=== PATIENT | male | born 1985 | race Caucasian/White ===

== ENCOUNTER 2022-06-29 20:35 | Emergency (ER) | payer MEDICAID, SELFPAY ==
--- NOTE | ~2022-06-29 | CT_ITS ---
EXAMINATION: CT ABDOMEN AND PELVIS WITHOUT CONTRAST CLINICAL INFORMATION: Generalized abdominal pain COMPARISON: CT 12/15/2016 TECHNIQUE: Multidetector volumetric imaging was performed from the superior aspect of the liver through the pubic symphysis. Sagittal and coronal reformatted images were obtained on the technologist's workstation. This CT examination was performed using dose optimization techniques as appropriate, variously including the following: *Automated exposure control *Adjustment of mA and/or kV according to patient size (this includes techniques or standardized protocols for targeted exams where dose is matched to indication/reason for exam; i.e. extremities or head) *Use of iterative reconstruction technique DLP: 909 mGy-cm FINDINGS: LUNG BASES: The visualized lung bases are unremarkable. LIVER, GALLBLADDER, AND BILIARY TREE: Diffuse fatty infiltration of the liver with geographic areas of fatty sparing around the gallbladder fossa. The gallbladder is unremarkable with no evidence of radiopaque gallstones, gallbladder wall thickening, or obvious pericholecystic inflammatory changes. PANCREAS: Unremarkable. SPLEEN: Unremarkable. ADRENAL GLANDS: Unremarkable. KIDNEYS AND URETERS: The kidneys are normal in size, shape, and attenuation. No hydronephrosis, hydroureter, or calculi seen. No perinephric stranding. BLADDER: Unremarkable. GASTROINTESTINAL TRACT: The small and large bowel are unremarkable. The appendix is unremarkable. ABDOMINAL WALL: Fat-containing left inguinal hernia. LYMPH NODES: Normal. VASCULAR: Unremarkable. PELVIC VISCERA: Unremarkable. OSSEOUS STRUCTURES: Unremarkable. CT/CT abdomen pelvis wo IV con IMPRESSION: 1. No focal inflammatory process or obstruction. 2. Diffuse fatty infiltration of the liver. 3. Fat-containing left inguinal hernia. Fleischner guidelines were followed.
[2022-06-29 20:40] VITALS: BP 142/91; PULSE 66; RESP 18; TEMP 36.6; O2SAT 97; BMI 40.7
--- NOTE | 2022-06-29 20:42 | ECG_ITS ---
Test Reason : ABD PAIN Blood Pressure : / mmHG Vent. Rate : 056 BPM Atrial Rate : 056 BPM P-R Int : 216 ms QRS Dur : 108 ms QT Int : 408 ms P-R-T Axes : 011 -25 -10 degrees QTc Int : 393 ms Sinus bradycardia with 1st degree A-V block Low voltage QRS Nonspecific ST and T wave abnormality Borderline ECG When compared with ECG of 07-MAY-2017 04:39, Nonspecific ST and T wave abnormality more prominent Referred By: Sumit King Electronically Signed By:BEBETO BEAR
--- NOTE | 2022-06-29 20:44 | ED_ITS ---
HPI - General Adult General Chief complaint: Abdominal Pain <LANE Caban - Last Filed: 06/30/22 13:27> Stated complaint: abd pain <LANE Caban - Last Filed: 06/30/22 13:27> Time Seen by Provider: 06/29/22 22:34 <[address] Caban - Last Filed: 06/30/22 13:27> Source: patient <LANE Chaudhary - Last Filed: 06/29/22 23:54> Mode of arrival: ambulatory <LANE Chaudhary - Last Filed: 06/29/22 23:54> Limitations: no limitations <LANE Chaudhary Last Filed: 06/29/22 23:54> History of Present Illness HPI narrative: This is a 36-year-old male history of gastritis, inguinal hernia, CHF, diabetes presenting to the emergency department with complaints of diffuse abdominal pain, nausea, vomiting, small amount of blood in vomit x a few days. Patient tells me that his abdominal pain is diffuse in nature, described as intermittently crampy and sometimes sharp throughout. Also reports associated nausea and vomiting and has been eating and drinking less than usual. Patient denies diarrhea however states he has been constipated for the past few days, he has been taking [id number] stool softeners with little to no relief. He does report that he had a small amount of what he thinks was blood in his vomit once however unclear. Denies fevers, chills, changes in urination, chest pain, shortness of breath, headache, vision changes, dizziness and weakness, hematochezia, melena. Denies recent sick contacts., <LANE Chaudhary - Last Filed: 06/29/22 23:54> Related Data Home medications: Previous Rx's Medication Instructions Recorded docusate sodium 100 mg capsule 100 mg PO BID #20 caps 06/29/22 (Colace) ketorolac 10 mg tablet 10 mg PO TID PRN pain 5 days #15 06/29/22 tabs ondansetron 4 mg disintegrating 4 mg PO Q6H PRN nausea and 06/29/22 tablet vomiting #14 tabs polyethylene glycol 3350 17 17 g PO BID #238 grams 06/29/22 gram/dose oral powder (Miralax) sennosides 8.6 mg tablet (senna) 8.6 mg PO BEDTIME #14 tabs 06/29/[address] <[address] Caban - Last Filed: 06/30/22 13:27> Allergies/adverse reactions: Allergies Allergy/AdvReac Type Severity Reaction Status Date / Time amoxicillin Allergy Hives Verified 06/29/22 20:40 <[address] Caban - Last Filed: 06/30/22 13:27> Review of Systems 2 Review of Systems: Constitutional : No Weight loss, No Fever, No Chills, No Fatigue, No Malaise ENT/Mouth : No sore throat, No Rhinorrhea Eyes: No Eye Pain, No Swelling, No Redness Cardiovascular : No Chest Pain, No SOB, No Dyspnea on Exertion, No Orthopnea, No Edema, No Palpitations Respiratory : No Cough, No Sputum, No Wheezing Gastrointestinal : + Nausea, + Vomiting, No Diarrhea, + Constipation, + abdominal Pain, No Hematochezia, No Melena Genitourinary : No Dysuria, No Urinary Frequency, No Hematuria, Musculoskeletal : No joint pain, No Myalgias, No Joint Swelling Skin : No Skin Lesions, No rash Neuro : No Weakness, No Numbness, No Dizziness, No Headache Psych : No Anxiety/Panic, No Depression All other systems reviewed and are negative <LANE Chaudhary - Last Filed: 06/29/22 23:54> Yes all other systems are reviewed and are negative <LANE Chaudhary - Last Filed: 06/29/22 23:54> [facility] Past Medical History Attestation statement: The following information was validated with the patient. <LANE Chaudhary - Last Filed: 06/29/22 23:54> Source: old records reviewed and nursing notes reviewed <LANE Chaudhary - Last Filed: 06/29/22 23:54> Medical History: Medical History CHF (congestive heart failure) Diabetes Gastritis Inguinal hernia <LANE Caban Last Filed: 06/30/22 13:27> Social History Social History: Social History Advance Directives: No Advance Directives Information Provided: No <LANE Caban - Last Filed: 06/30/22 13:27> Physical Exam ED Vital Signs: Vital Signs - 24 hr 06/29/22 20:40 06/29/22 23:11 Temperature 97.9 F Pulse Rate 66 61 Respiratory Rate 18 18 Blood Pressure 142/91 H 116/68 Pulse Oximetry 97 98 Oxygen Delivery Method Room Air Room Air BMI result Body Mass Index 40.7 <[address] Caban - Last Filed: 06/30/22 13:27> Vital Signs - 24 hr 06/29/22 20:40 06/29/22 23:11 Temperature 97.9 F Pulse Rate 66 61 Respiratory Rate 18 18 Blood Pressure 142/91 H 116/68 Pulse Oximetry 97 98 Oxygen Delivery Method Room Air Room Air BMI result Body Mass Index 40.7 Vital signs stable <LANE Chaudhary - Last Filed: 06/29/22 23:54> Appearance: Alert.? Oriented X3.? No acute distress.? Head: Normocephalic, atraumatic, no step-offs or deformities Eyes: Pupils equal, round and reactive to light.? Neck: Normal inspection.? Neck supple.? CVS: Normal heart rate and rhythm.? Pulses normal.? Respiratory: No respiratory distress.? Breath sounds normal.? Abdomen: Soft and nontender.? Diffuse abdominal tenderness with normoactive bowel sounds throughout. Skin: Skin warm and dry.? Normal skin color.? Normal skin turgor.? Extremities: No lower extremity edema.? No calf ttp. 5/5 strength to bilateral upper and lower extremities Neuro: Oriented X 3.? No motor deficit.? No sensory deficit. CN 2-[address] Chaudhary - Last Filed: 06/29/22 23:54> Course Course Course Narrative: RME: 36 yold male with pmh CHF/DM presents to the ED for generalized abdominal pain with vomitting. Generalized abdominal tendernss on palpation. labs and imaging ordered <LANE Caban - Last Filed: 06/30/22 13:27> Reevaluation(s) Reevaluation #1: CBC with slight normocytic anemia and slight elevated white blood cell count likely reactive. Coags within normal limits. Chemistry with no acute findings requiring intervention. Troponin negative EKG nonischemic unlikely ACS., lipase within normal limits. UA without infection. CT of the abdomen pelvis with no focal inflammatory process or obstruction. Diffuse fatty infiltration of liver. Fat containing left inguinal hernia. Pending viral swabs. <LANE Chaudhary - Last Filed: 06/29/22 23:54> Time: 22:38 <[address] Chaudhary - Last Filed: 06/29/22 23:54> Reevaluation #2: Flu, COVID negative. Patient feeling much better, upon re-evaluation abdomen no longer tender to palpation. At this time will be discharged home. Tolerating PO. Educated patient on diagnosis and treatment plan, answered all question, patient verbalizes understanding. At this time patient will be discharged home, advised to return with new or worsening symptoms. Educated on worrisome signs and symptoms and when to return. At this time I feel comfortable discharge home. <LANE Chaudhary - Last Filed: 06/29/22 23:54> Time: 23:51 <[address] Chaudhary - Last Filed: 06/29/22 23:54> Medications Administered Discontinued Medications Generic Name Dose Route Start Last Admin Trade Name Freq PRN Reason Stop Dose Admin Ketorolac Tromethamine 30 mg 06/29/22 22:49 06/29/22 23:10 Ketorolac Tromethamine 15 Mg/Ml Vial IM 06/29/22 22:50 30 mg ONCE ONE Administration Ondansetron HCl 4 mg 06/29/22 22:49 06/29/22 23:10 Ondansetron Odt 4 Mg Tab.Rapdis TRANSLINGU 06/29/22 22:50 4 mg ONCE ONE Administration <LANE Caban - Last Filed: 06/30/22 13:27> Medications Administered Discontinued Medications Generic Name Dose Route Start Last Admin Trade Name Freq PRN Reason Stop Dose Admin Ketorolac Tromethamine 30 mg 06/29/22 22:49 06/29/22 23:10 Ketorolac Tromethamine 15 Mg/Ml Vial IM 06/29/22 22:50 30 mg ONCE ONE Administration Ondansetron HCl 4 mg 06/29/22 22:49 06/29/22 23:10 Ondansetron Odt 4 Mg Tab.Aman CEVALLOSINGU 06/29/22 22:50 4 mg ONCE ONE Administration <LANE Chaudhary - Last Filed: 06/29/22 23:54> Medical Decision Making Medical Decision Making [facility] Narrative: [id number] 36-year-old male presents for evaluation of abdominal pain, nausea, vomiting ( once with small amount of red tinge patient thought was blood) X 2 days Physical exam with diffuse abdominal tenderness. Likely viral illness. Unlikley UGIB, Marlene-Romo tear.. No signs of acute abdomen. No signs of ischemic bowel, appendicitis, cholecystitis, diverticulitis, pancreatitis, obstruction Plan labs, imaging, urine <LANE Chaudhary - Last Filed: 06/29/22 23:54> Differential Diagnosis Differential Diagnoses: The differential diagnosis associated with the presentation includes <LANE Chaudhary - Last Filed: 06/29/22 23:54> Likely viral illness. Unlikley UGIB, Marlene-Romo tear.. No signs of acute abdomen. No signs of ischemic bowel, appendicitis, cholecystitis, diverticulitis, pancreatitis, obstruction <LANE Chaudhary - Last Filed: 06/29/22 23:54> Admission/Observation Consideration of admission/observation: Escalation of care including admission/observation considered <LANE Chaudhary - Last Filed: 06/29/22 23:54> Unlikely <LANE Chaudhary - Last Filed: 06/29/22 23:54> Lab Data [facility] Lab Attestation statement: I reviewed the patient's lab results. <LANE Chaudhary - Last Filed: 06/29/22 23:54> Result Diagrams: 06/29/22 21:24 06/29/22 21:[address] <[address] Caban - Last Filed: 06/30/22 13:27> Labs: Lab Results 06/29/22 06/29/22 06/29/22 Range/Units 21:24 21:24 21:24 WBC 13.0 H (4.8-10.8) X10*3/uL RBC 4.38 L (4.60-5.80) X10*6/uL Hgb 12.2 L (14.0-18.0) g/dl Hct 36.9 L (42.0-52.0) % MCV 84.2 (80.0-98.0) fL MCH 27.9 (27.0-33.0) pg MCHC 33.1 (31.0-36.0) g/dl RDW 12.5 (11.0-16.0) % Plt Count 298 (160-400) X10*3/uL MPV 9.5 (9.4-12.4) fL Immature Gran % (Auto) 0.4 (0.0-0.4) % Neut % (Auto) 76.0 H (45-73) % Lymph % (Auto) 17.6 L (20-40) % Maury % (Auto) 4.6 (2-11) % Eos % (Auto) 1.2 (0-4) % Baso % (Auto) 0.2 (0-2) % Lymph # (Auto) 2.3 (1.2-4.9) X10*3/uL Maury # (Auto) 0.6 (0.1-1.2) X10*3/uL Eos # (Auto) 0.2 (0.0-0.4) X10*3/uL Baso # (Auto) 0.0 (0.0-0.2) X10*3/uL Abs Immat Gran (auto) 0.05 H (0.00-0.03) X10*3/uL Absolute Neuts (auto) 9.9 H (2.0-8.3) x10*3/uL Absolute Nucleated RBC 0.000 (0.0-0.012) X10*3/uL Nucleated RBC % (auto) 0.0 (0.0-0.2) /100WBC PT 12.5 (10.0-13.1) SEC INR 1.1 (0.9-1.1) APTT 27.7 (26.0-36.4) SEC Sodium 138 (135-145) mmol/L Potassium 3.9 (3.3-5.1) mmol/L Chloride 106 (96-108) mmol/L Carbon Dioxide 20 L (22-29) mmol/L Anion Gap 16 (12-20) BUN 14 (9-16) mg/dL Creatinine 0.81 (0.5-1.4) mg/dL Estim Creat Clear Calc 156.3 Estimated GFR > 60 Random Glucose 166 H (60-115) mg/dL Calcium 8.6 (8.4-10.2) mg/dL Total Bilirubin 0.7 (0.0-1.0) mg/dL AST 21 (5-37) U/L ALT 37 (0-40) U/L Alkaline Phosphatase 70 (39-117) U/L Troponin I High Sens (<3.5-35.0) ng/L Total Protein 6.7 (6.5-8.0) g/dL Albumin 3.9 (3.5-5.0) g/dL Lipase 16 (8-78) U/L Urine Color Urine Appearance Urine pH (5.0-9.0) Ur Specific [place] (1.005-1.025) Urine Protein (Neg-Trace) mg/dL Urine Glucose (UA) (Negative) mg/dL Urine Ketones (Negative) mg/dL Urine Blood (Negative) Urine Nitrite (Negative) Ur Leukocyte Esterase (Negative) COVID-19 (JOSELINE) (Negative) COVID-19 Clin Com Influenza Type A (ABUNDIO) (Negative) Influenza Type B (ABUNDIO) (Negative) Influenza A & B Note 06/29/22 06/29/22 06/29/22 Range/Units 21:24 21:29 23:24 WBC (4.8-10.8) X10*3/uL RBC (4.60-5.80) X10*6/uL Hgb (14.0-18.0) g/dl Hct (42.0-52.0) % MCV (80.0-98.0) fL MCH (27.0-33.0) pg MCHC (31.0-36.0) g/dl RDW (11.0-16.0) % Plt Count (160-400) X10*3/uL MPV (9.4-12.4) fL Immature Gran % (Auto) (0.0-0.4) % Neut % (Auto) (45-73) % Lymph % (Auto) (20-40) % Maury % (Auto) (2-11) % Eos % (Auto) (0-4) % Baso % (Auto) (0-2) % Lymph # (Auto) (1.2-4.9) X10*3/uL Maury # (Auto) (0.1-1.2) X10*3/uL Eos # (Auto) (0.0-0.4) X10*3/uL Baso # (Auto) (0.0-0.2) X10*3/uL Abs Immat Gran (auto) (0.00-0.03) X10*3/uL Absolute Neuts (auto) (2.0-8.3) x10*3/uL Absolute Nucleated RBC (0.0-0.012) X10*3/uL Nucleated RBC % (auto) (0.0-0.2) /100WBC PT (10.0-13.1) SEC INR (0.9-1.1) APTT (26.0-36.4) SEC Sodium (135-145) mmol/L Potassium (3.3-5.1) mmol/L Chloride (96-108) mmol/L Carbon Dioxide (22-29) mmol/L Anion Gap (12-20) BUN (9-16) mg/dL Creatinine (0.5-1.4) mg/dL Estim Creat Clear Calc Estimated GFR Random Glucose (60-115) mg/dL Calcium (8.4-10.2) mg/dL Total Bilirubin (0.0-1.0) mg/dL AST (5-37) U/L ALT (0-40) U/L Alkaline Phosphatase (39-117) U/L Troponin I High Sens < 3.5 (<3.5-35.0) ng/L Total Protein (6.5-8.0) g/dL Albumin (3.5-5.0) g/dL Lipase (8-78) U/L Urine Color Yellow Urine Appearance Clear Urine pH 5.5 (5.0-9.0) Ur Specific [place] >= 1.030 H (1.005-1.025) Urine Protein Trace (Neg-Trace) mg/dL Urine Glucose (UA) Negative (Negative) mg/dL Urine Ketones Negative (Negative) mg/dL Urine Blood Negative (Negative) Urine Nitrite Negative (Negative) Ur Leukocyte Esterase Negative (Negative) COVID-19 (JOSELINE) (Negative) COVID-19 Clin Com Influenza Type A (ABUNDIO) Negative (Negative) Influenza Type B (ABUNDIO) Negative (Negative) Influenza A & B Note See Note 06/29/22 Range/Units 23:24 WBC (4.8-10.8) X10*3/uL RBC (4.60-5.80) X10*6/uL Hgb (14.0-18.0) g/dl Hct (42.0-52.0) % MCV (80.0-98.0) fL MCH (27.0-33.0) pg MCHC (31.0-36.0) g/dl RDW (11.0-16.0) % Plt Count (160-400) X10*3/uL MPV (9.4-12.4) fL Immature Gran % (Auto) (0.0-0.4) % Neut % (Auto) (45-73) % Lymph % (Auto) (20-40) % Maury % (Auto) (2-11) % Eos % (Auto) (0-4) % Baso % (Auto) (0-2) % Lymph # (Auto) (1.2-4.9) X10*3/uL Maury # (Auto) (0.1-1.2) X10*3/uL Eos # (Auto) (0.0-0.4) X10*3/uL Baso # (Auto) (0.0-0.2) X10*3/uL Abs Immat Gran (auto) (0.00-0.03) X10*3/uL Absolute Neuts (auto) (2.0-8.3) x10*3/uL Absolute Nucleated RBC (0.0-0.012) X10*3/uL Nucleated RBC % (auto) (0.0-0.2) /100WBC PT (10.0-13.1) SEC INR (0.9-1.1) APTT (26.0-36.4) SEC Sodium (135-145) mmol/L Potassium (3.3-5.1) mmol/L Chloride (96-108) mmol/L Carbon Dioxide (22-29) mmol/L Anion Gap (12-20) BUN (9-16) mg/dL Creatinine (0.5-1.4) mg/dL Estim Creat Clear Calc Estimated GFR Random Glucose (60-115) mg/dL Calcium (8.4-10.2) mg/dL Total Bilirubin (0.0-1.0) mg/dL AST (5-37) U/L ALT (0-40) U/L Alkaline Phosphatase (39-117) U/L Troponin I High Sens (<3.5-35.0) ng/L Total Protein (6.5-8.0) g/dL Albumin (3.5-5.0) g/dL Lipase (8-78) U/L Urine Color Urine Appearance Urine pH (5.0-9.0) Ur Specific [place] (1.005-1.025) Urine Protein (Neg-Trace) mg/dL Urine Glucose (UA) (Negative) mg/dL Urine Ketones (Negative) mg/dL Urine Blood (Negative) Urine Nitrite (Negative) Ur Leukocyte Esterase (Negative) COVID-19 (JOSELINE) Negative (Negative) COVID-19 Clin Com See Note Influenza Type A (ABUNDIO) (Negative) Influenza Type B (ABUNDIO) (Negative) Influenza A & B Note <LANE Caban - Last Filed: 06/30/22 13:27> Lab Results 06/29/22 06/29/22 06/29/22 Range/Units 21:24 21:24 21:24 WBC 13.0 H (4.8-10.8) X10*3/uL RBC 4.38 L (4.60-5.80) X10*6/uL Hgb 12.2 L (14.0-18.0) g/dl Hct 36.9 L (42.0-52.0) % MCV 84.2 (80.0-98.0) fL MCH 27.9 (27.0-33.0) pg MCHC 33.1 (31.0-36.0) g/dl RDW 12.5 (11.0-16.0) % Plt Count 298 (160-400) X10*3/uL MPV 9.5 (9.4-12.4) fL Immature Gran % (Auto) 0.4 (0.0-0.4) % Neut % (Auto) 76.0 H (45-73) % Lymph % (Auto) 17.6 L (20-40) % Maury % (Auto) 4.6 (2-11) % Eos % (Auto) 1.2 (0-4) % Baso % (Auto) 0.2 (0-2) % Lymph # (Auto) 2.3 (1.2-4.9) X10*3/uL Maury # (Auto) 0.6 (0.1-1.2) X10*3/uL Eos # (Auto) 0.2 (0.0-0.4) X10*3/uL Baso # (Auto) 0.0 (0.0-0.2) X10*3/uL Abs Immat Gran (auto) 0.05 H (0.00-0.03) X10*3/uL Absolute Neuts (auto) 9.9 H (2.0-8.3) x10*3/uL Absolute Nucleated RBC 0.000 (0.0-0.012) X10*3/uL Nucleated RBC % (auto) 0.0 (0.0-0.2) /100WBC PT 12.5 (10.0-13.1) SEC INR 1.1 (0.9-1.1) APTT 27.7 (26.0-36.4) SEC Sodium 138 (135-145) mmol/L Potassium 3.9 (3.3-5.1) mmol/L Chloride 106 (96-108) mmol/L Carbon Dioxide 20 L (22-29) mmol/L Anion Gap 16 (12-20) BUN 14 (9-16) mg/dL Creatinine 0.81 (0.5-1.4) mg/dL Estim Creat Clear Calc 156.3 Estimated GFR > 60 Random Glucose 166 H (60-115) mg/dL Calcium 8.6 (8.4-10.2) mg/dL Total Bilirubin 0.7 (0.0-1.0) mg/dL AST 21 (5-37) U/L ALT 37 (0-40) U/L Alkaline Phosphatase 70 (39-117) U/L Troponin I High Sens (<3.5-35.0) ng/L Total Protein 6.7 (6.5-8.0) g/dL Albumin 3.9 (3.5-5.0) g/dL Lipase 16 (8-78) U/L Urine Color Urine Appearance Urine pH (5.0-9.0) Ur Specific [place] (1.005-1.025) Urine Protein (Neg-Trace) mg/dL Urine Glucose (UA) (Negative) mg/dL Urine Ketones (Negative) mg/dL Urine Blood (Negative) Urine Nitrite (Negative) Ur Leukocyte Esterase (Negative) COVID-19 (JOSELINE) (Negative) COVID-19 Clin Com Influenza Type A (ABUNDIO) (Negative) Influenza Type B (ABUNDIO) (Negative) Influenza A & B Note 06/29/22 06/29/22 06/29/22 Range/Units 21:24 21:29 23:24 WBC (4.8-10.8) X10*3/uL RBC (4.60-5.80) X10*6/uL Hgb (14.0-18.0) g/dl Hct (42.0-52.0) % MCV (80.0-98.0) fL MCH (27.0-33.0) pg MCHC (31.0-36.0) g/dl RDW (11.0-16.0) % Plt Count (160-400) X10*3/uL MPV (9.4-12.4) fL Immature Gran % (Auto) (0.0-0.4) % Neut % (Auto) (45-73) % Lymph % (Auto) (20-40) % Maury % (Auto) (2-11) % Eos % (Auto) (0-4) % Baso % (Auto) (0-2) % Lymph # (Auto) (1.2-4.9) X10*3/uL Maury # (Auto) (0.1-1.2) X10*3/uL Eos # (Auto) (0.0-0.4) X10*3/uL Baso # (Auto) (0.0-0.2) X10*3/uL Abs Immat Gran (auto) (0.00-0.03) X10*3/uL Absolute Neuts (auto) (2.0-8.3) x10*3/uL Absolute Nucleated RBC (0.0-0.012) X10*3/uL Nucleated RBC % (auto) (0.0-0.2) /100WBC PT (10.0-13.1) SEC INR (0.9-1.1) APTT (26.0-36.4) SEC Sodium (135-145) mmol/L Potassium (3.3-5.1) mmol/L Chloride (96-108) mmol/L Carbon Dioxide (22-29) mmol/L Anion Gap (12-20) BUN (9-16) mg/dL Creatinine (0.5-1.4) mg/dL Estim Creat Clear Calc Estimated GFR Random Glucose (60-115) mg/dL Calcium (8.4-10.2) mg/dL Total Bilirubin (0.0-1.0) mg/dL AST (5-37) U/L ALT (0-40) U/L Alkaline Phosphatase (39-117) U/L Troponin I High Sens < 3.5 (<3.5-35.0) ng/L Total Protein (6.5-8.0) g/dL Albumin (3.5-5.0) g/dL Lipase (8-78) U/L Urine Color Yellow Urine Appearance Clear Urine pH 5.5 (5.0-9.0) Ur Specific [place] >= 1.030 H (1.005-1.025) Urine Protein Trace (Neg-Trace) mg/dL Urine Glucose (UA) Negative (Negative) mg/dL Urine Ketones Negative (Negative) mg/dL Urine Blood Negative (Negative) Urine Nitrite Negative (Negative) Ur Leukocyte Esterase Negative (Negative) COVID-19 (JOSELINE) (Negative) COVID-19 Clin Com Influenza Type A (ABUNDIO) Negative (Negative) Influenza Type B (ABUNDIO) Negative (Negative) Influenza A & B Note See Note 06/29/22 Range/Units 23:24 WBC (4.8-10.8) X10*3/uL RBC (4.60-5.80) X10*6/uL Hgb (14.0-18.0) g/dl Hct (42.0-52.0) % MCV (80.0-98.0) fL MCH (27.0-33.0) pg MCHC (31.0-36.0) g/dl RDW (11.0-16.0) % Plt Count (160-400) X10*3/uL MPV (9.4-12.4) fL Immature Gran % (Auto) (0.0-0.4) % Neut % (Auto) (45-73) % Lymph % (Auto) (20-40) % Maury % (Auto) (2-11) % Eos % (Auto) (0-4) % Baso % (Auto) (0-2) % Lymph # (Auto) (1.2-4.9) X10*3/uL Maury # (Auto) (0.1-1.2) X10*3/uL Eos # (Auto) (0.0-0.4) X10*3/uL Baso # (Auto) (0.0-0.2) X10*3/uL Abs Immat Gran (auto) (0.00-0.03) X10*3/uL Absolute Neuts (auto) (2.0-8.3) x10*3/uL Absolute Nucleated RBC (0.0-0.012) X10*3/uL Nucleated RBC % (auto) (0.0-0.2) /100WBC PT (10.0-13.1) SEC INR (0.9-1.1) APTT (26.0-36.4) SEC Sodium (135-145) mmol/L Potassium (3.3-5.1) mmol/L Chloride (96-108) mmol/L Carbon Dioxide (22-29) mmol/L Anion Gap (12-20) BUN (9-16) mg/dL Creatinine (0.5-1.4) mg/dL Estim Creat Clear Calc Estimated GFR Random Glucose (60-115) mg/dL Calcium (8.4-10.2) mg/dL Total Bilirubin (0.0-1.0) mg/dL AST (5-37) U/L ALT (0-40) U/L Alkaline Phosphatase (39-117) U/L Troponin I High Sens (<3.5-35.0) ng/L Total Protein (6.5-8.0) g/dL Albumin (3.5-5.0) g/dL Lipase (8-78) U/L Urine Color Urine Appearance Urine pH (5.0-9.0) Ur Specific [place] (1.005-1.025) Urine Protein (Neg-Trace) mg/dL Urine Glucose (UA) (Negative) mg/dL Urine Ketones (Negative) mg/dL Urine Blood (Negative) Urine Nitrite (Negative) Ur Leukocyte Esterase (Negative) COVID-19 (JOSELINE) Negative (Negative) COVID-19 Clin Com See Note Influenza Type A (ABUNDIO) (Negative) Influenza Type B (ABUNDIO) (Negative) Influenza A & B Note <LANE Chaudhary - Last Filed: 06/29/22 23:54> Independent Interpretation I performed an independent interpretation of an: CT Scan (CT/CT abdomen pelvis wo IV con IMPRESSION: 1. No focal inflammatory process or obstruction. 2. Diffuse fatty infiltration of the live r. 3. Fat-containing left inguinal hernia.) <LANE Chaudhary - Last Filed: 06/29/22 23:54> Radiology Impression Discussion of test interpretation with radiology: I have reviewed the radiologist's reading. <LANE Chaudhary - Last Filed: 06/29/22 23:54> Core Measures AMI core measures followed: Yes <LANE Chaudhary - Last Filed: 06/29/22 23:54> Measure exclusions: not indicated <LANE Chaudhary - Last Filed: 06/29/22 23:54> Critical Care Time Critical Care Time Critical Care Time: No <LANE Chaudhary - Last Filed: 06/29/22 23:54> Discharge Plan Discharge Clinical Impression: Nausea & vomiting, Abdominal pain, Vomiting <LANE Caban - Last Filed: 06/30/22 13:27> Patient Disposition: Home, Self-Care <LANE Caban Last Filed: 06/30/22 13:27> Instructions: Acute Nausea and Vomiting (ED), Abdominal Pain (ED) <LANE Caban Last Filed: 06/30/22 13:27> Additional Instructions: Take your medications as prescribed. If you were prescribed antibiotics today, it is important that you take your medication to their entirety, do not skip any doses, do not finish them early. Follow-up with your primary care provider this week. Return to the emergency department with new or worsening symptoms. Such as fevers, chills, chest pain, shortness of breath, nausea, vomiting, dizziness, headache, vision changes, lethargy In case of emergency call 911 Zofran was sent for nausea and vomiting, please take this as prescribed, do not take more than daily prescribed doses this can lead to cardiac dysrhythmias. Colace, senna and MiraLax sent for constipation. Toradol has been sent to your pharmacy, you tolerated this well in the department. Please take this as prescribed do not take this with ibuprofen, or other NSAIDs, do not mix this with alcohol. Side effects of this medication including increased risk for bleeding and possible kidney injury. CT/CT abdomen pelvis wo IV con IMPRESSION: 1.? No focal inflammatory process or obstruction. 2.? Diffuse fatty infiltration of the liver. 3.? Fat-containing left inguinal hernia. ? Fleischner guidelines were followed. <LANE Caban - Last Filed: 06/30/22 13:27> Prescriptions: New sennosides [senna] 8.6 mg tablet 8.6 mg PO BEDTIME Qty: 14 0RF docusate sodium [Colace] 100 mg capsule 100 mg PO BID Qty: 20 0RF polyethylene glycol 3350 [Miralax] 17 gram/dose powder 17 g PO BID Qty: 238 0RF ondansetron 4 mg tablet,disintegrating 4 mg PO Q6H PRN (Reason: nausea and vomiting) Qty: 14 0RF ketorolac 10 mg tablet 10 mg PO TID PRN (Reason: pain) 5 Days Qty: 15 0RF <L[address] Caban - Last Filed: 06/30/22 13:27> Referrals: [facility] [place] [facility] [Provider Group] Yonathan Aiken MD [Primary Care Provider] - [address] <[address] Caban - Last Filed: 06/30/22 13:27> Stand Alone Forms: Work/School Release <LANE Caban - Last Filed: 06/30/22 13:27> Interventions: ED Discharge Assessment Last Done: 06/30/22 00:09 <[address] Caban Last Filed: 06/30/22 13:27> Discharge Date/Time: 06/30/22 00:10 <L[address] Caban - Last Filed: 06/30/22 13:27>
[2022-06-29 21:28] LABS: MANUAL DIFF FLAG NO
[2022-06-29 21:29] LABS: Basophils Percent Auto 0.2 % (0-2); Eosinophils Absolute Auto 0.2 X10*3/uL (0.0-0.4); Eosinophils Percent Auto 1.2 % (0-4); Hematocrit 36.9 % (42.0-52.0); Hemoglobin 12.2 g/dl (14.0-18.0); Imm Gran Abs Auto 0.05 X10*3/uL (0.00-0.03); Imm Gran Pct Auto 0.4 % (0.0-0.4); Lymphocytes Absolute Auto 2.3 X10*3/uL (1.2-4.9); Lymphocytes Percent Auto 17.6 % (20-40); Mean Corpuscular HGB Conc 33.1 g/dl (31.0-36.0); Mean Corpuscular Hemoglobin 27.9 pg (27.0-33.0); Mean Corpuscular Volume 84.2 fL (80.0-98.0); Mean Platelet Volume 9.5 fL (9.4-12.4); Monocytes Absolute Auto 0.6 X10*3/uL (0.1-1.2); Monocytes Percent Auto 4.6 % (2-11); Neutrophils Absolute Auto 9.9 x10*3/uL (2.0-8.3); Platelet Count 298 X10*3/uL (160-400); Red Blood Count 4.38 X10*6/uL (4.60-5.80); Red Cell Distribution Width 12.5 % (11.0-16.0)
--- NOTE | 2022-06-29 21:30 | MHC.EDTECH ---
pt ekg done and was read by provider ,blood drawn and urine sample collected and sent to lab .
[2022-06-29 21:35] LABS: INTERNATIONAL NORM RATIO 1.1 (0.9-1.1); Prothrombin Time 12.5 SEC (10.0-13.1)
[2022-06-29 21:37] LABS: Partial Thromboplastin Time 27.7 SEC (26.0-36.4)
[2022-06-29 21:38] LABS: Appearance Urine Clear; Color Urine Yellow; Glucose Urine UA Negative (Negative); Leukocyte Esterase Urine Negative (Negative); Nitrite Urine Negative (Negative); PH 5.5 (5.0-9.0); Specific Gravity - Urine >= 1.030 (1.005-1.025); Urine Blood Negative (Negative); Urine Ketones Negative (Negative); Urine Protein Trace mg/dL (Neg-Trace)
[2022-06-29 21:46] LABS: Alanine Aminotransferase 37 U/L (0-40); Albumin Level 3.9 g/dL (3.5-5.0); Alkaline Phosphatase 70 U/L (39-117); Anion Gap 16 (12-20); Aspartate Amino Transferase 21 U/L (5-37); Bilirubin Total 0.7 mg/dL (0.0-1.0); Blood Urea Nitrogen 14 mg/dL (9-16); Calcium 8.6 mg/dL (8.4-10.2); Carbon Dioxide 20 mmol/L (22-29); Chloride 106 mmol/L (96-108); Creatinine Clr Calc Pharmacy 156.3; Estimated Glomerular Filt Rate > 60; Glucose Random 166 mg/dL (60-115); Lipase 16 U/L (8-78); Potassium 3.9 mmol/L (3.3-5.1); Sodium 138 mmol/L (135-145); Total Protein 6.7 g/dL (6.5-8.0)
[2022-06-29 21:55] LABS: Troponin-I High Sensitivity < 3.5 ng/L (<3.5-35.0)
[2022-06-29] MEDS: Ketorolac Tromethamine 15 MG/ML VIAL 30 MG IM (23:10)
[2022-06-29] MEDS: Ondansetron ODT 4 MG TAB.RAPDIS TRANSLINGU (23:10)
[2022-06-29 23:11] VITALS: BP 116/68; PULSE 61; RESP 18; O2SAT 98
[2022-06-29 23:47] LABS: IDNOW Serial# BCCEAD1C; Influenza A Negative (Negative); Influenza B2 Negative (Negative)
[2022-06-29 23:48] LABS: COVID-19 Test Negative (Negative); IDNOW Serial# 08D9AD1C
== END 2022-06-30 00:10 | disposition home or self-care (01) ==
PROVIDERS: Physician Assistant; Emergency Provider Internal Medicine; PCP Internal Medicine
DX: R10.9 Unspecified abdominal pain (principal); R11.2 Nausea with vomiting, unspecified; R00.0 Tachycardia, unspecified; Z20.822 Contact with and (suspected) exposure to COVID-19; Z20.828 Contact with and (suspected) exposure to other viral communicable diseases; Z79.899 Other long term (current) drug therapy
CPT/HCPCS: 36415; 74176; 80053; 81003; 83690; 84484; 85025; 85610; 85730; 87502; 87635; 93005; 96372; 99284; J1885

== ENCOUNTER 2022-10-28 17:41 | Outpatient (REF) | payer MEDICAID, SELFPAY ==
[2022-11-02 11:23] LABS: Benzoylecgonine 2415
[2022-11-02 11:24] LABS: Cocaine Comment SEE COMMENTS
== END 2022-10-28 17:42 | disposition home or self-care (01) ==
LOC: HO.HHCLNP 17:41
PROVIDERS: Visit Provider Emergency Medicine
DX: F11.20 Opioid dependence, uncomplicated (principal)
CPT/HCPCS: 36415; 80353

== ENCOUNTER 2022-11-26 15:56 | Outpatient (REF) | payer MEDICAID, SELFPAY ==
[2022-11-26 17:48] LABS: Cholesterol 161 mg/dL (<200); HDL Cholesterol 32 mg/dL (>40); LDL Cholesterol Calculated 79 mg/dL (<100); Triglycerides 252 mg/dL (<150)
== END 2022-11-26 15:57 | disposition home or self-care (01) ==
LOC: HO.HHCL 15:56
PROVIDERS: Visit Provider Registered Nurse
DX: E11.65 Type 2 diabetes mellitus with hyperglycemia (principal); Z79.4 Long term (current) use of insulin
CPT/HCPCS: 36415; 80061

== ENCOUNTER 2022-12-02 14:19 | Outpatient (REF) | payer MEDICAID, SELFPAY ==
[2022-12-05 10:58] LABS: Fentanyl, Ur NEGATIVE; Norfentanyl, Ur NEGATIVE
[2022-12-09 09:02] LABS: Benzoylecgonine 411 (H)
== END 2022-12-02 14:20 | disposition home or self-care (01) ==
LOC: HO.HHCLNP 14:19
PROVIDERS: Visit Provider Emergency Medicine
DX: F11.20 Opioid dependence, uncomplicated (principal)
CPT/HCPCS: 80353; 80354

== ENCOUNTER 2022-12-31 16:37 | Outpatient (REF) | payer MEDICAID, SELFPAY ==
[2022-12-31 17:42] LABS: Creatinine Urine 64.81 mg/dL; Microalbumin Urine < 5.0 mg/L
== END 2022-12-31 16:38 | disposition home or self-care (01) ==
LOC: HO.HHCL 16:37
PROVIDERS: Visit Provider Registered Nurse
DX: E11.65 Type 2 diabetes mellitus with hyperglycemia (principal)
CPT/HCPCS: 82570

== ENCOUNTER 2023-01-13 11:50 | Outpatient (REF) | payer MEDICAID, SELFPAY | END 2023-01-13 11:51 | disposition home or self-care (01) | LOC: HO.HHCX 11:50 | PROVIDERS: Visit Provider Registered Nurse | DX: R06.00 Dyspnea, unspecified (principal) | CPT/HCPCS: 71046 ==

== ENCOUNTER 2023-01-13 13:09 | Outpatient (REF) | payer MEDICAID, SELFPAY ==
[2023-01-19 11:57] LABS: Fentanyl, Ur NEGATIVE; Norfentanyl, Ur NEGATIVE
== END 2023-01-13 13:10 | disposition home or self-care (01) ==
LOC: HO.HHCLNP 13:09
PROVIDERS: Visit Provider Emergency Medicine
DX: F11.29 Opioid dependence with unspecified opioid-induced disorder (principal)
CPT/HCPCS: 80354

== ENCOUNTER 2023-02-25 18:04 | Outpatient (REF) | payer MEDICAID, SELFPAY | END 2023-02-25 18:05 | disposition home or self-care (01) | LOC: HO.HHCLNP 18:04 | PROVIDERS: Visit Provider Registered Nurse | DX: N50.89 Other specified disorders of the male genital organs (principal) | CPT/HCPCS: 36415; 87255 ==

== ENCOUNTER 2023-02-26 10:38 | Emergency (ER) | payer MEDICAID, SELFPAY ==
--- NOTE | ~2023-02-26 | XR_ITS ---
Examination: Chest and lumbar spine. Clinical indications: Pneumonia. COMPARISON: Chest x-ray 01/13/2023. FINDINGS: CHEST ONE VIEW: The lungs are well-expanded and clear. The heart size and pulmonary vascularity is normal. No gross bony abnormality seen. LUMBAR SPINE: There is normal lumbar lordosis. The vertebral heights, alignment and disc heights are normal. There is minimal posterior spondylosis L5-S1 and ventral enthesophyte at 3-4 disc level. No visible acute fracture, dislocation or subluxation seen. The paravertebral soft tissues are normal. SI joints are normal. The soft tissues are normal. XR/XR chest 1V IMPRESSION: 1. Unremarkable chest exam. 2. Minimal posterior spondylosis L5-S1 and ventral enthesophyte at 3-4 disc level. No visible acute fracture, dislocation or subluxation seen. 3. Unremarkable lumbar spine exam.
--- NOTE | ~2023-02-26 | XR_ITS ---
Examination: Chest and lumbar spine. Clinical indications: Pneumonia. COMPARISON: Chest x-ray 01/13/2023. FINDINGS: CHEST ONE VIEW: The lungs are well-expanded and clear. The heart size and pulmonary vascularity is normal. No gross bony abnormality seen. LUMBAR SPINE: There is normal lumbar lordosis. The vertebral heights, alignment and disc heights are normal. There is minimal posterior spondylosis L5-S1 and ventral enthesophyte at 3-4 disc level. No visible acute fracture, dislocation or subluxation seen. The paravertebral soft tissues are normal. SI joints are normal. The soft tissues are normal. XR/XR lumbar spine 2-3V IMPRESSION: 1. Unremarkable chest exam. 2. Minimal posterior spondylosis L5-S1 and ventral enthesophyte at 3-4 disc level. No visible acute fracture, dislocation or subluxation seen. 3. Unremarkable lumbar spine exam.
[2023-02-26 10:52] VITALS: BP 123/84; PULSE 102; RESP 17; TEMP 36.7; O2SAT 97; BMI 38.2
--- NOTE | 2023-02-26 11:15 | ECG_ITS ---
Test Reason : weakness, near syncopal Blood Pressure : / mmHG Vent. Rate : 070 BPM Atrial Rate : 070 BPM P-R Int : 206 ms QRS Dur : 100 ms QT Int : 380 ms P-R-T Axes : 026 -21 -04 degrees QTc Int : 410 ms Normal sinus rhythm Left axis deviation Borderline ECG When compared with ECG of 29-JUN-2022 21:15, Nonspecific T wave abnormality no longer evident in Anterior leads Referred By: Sumit King Electronically Signed By:BRE LOMBARDI MD
--- NOTE | 2023-02-26 11:47 | ED_ITS ---
HPI - Male Genitourinary General Chief complaint: Urogenital-Male Stated complaint: sti symptoms ? Time Seen by Provider: 02/26/23 10:51 Source: patient Mode of arrival: ambulatory Limitations: no limitations History of Present Illness HPI Narrative: 37 year male history of diabetes, heart failure presents to the ED for multiple complaints. Patient's first complaint involving STI exposure. Patient states last week having a drug binge on PCP and at the same time had unprotected sex with two people during the binge. patient states since than has had crawling/tingling sensation in extremites, weakness described as fatigue, white collection around penis, and dysuria. Patient denies headache, chest pain, or shortness of breath. Patient states also having back pain. patient states he fell unto his back yesterday which made his back pain worse. Patient states also couple of days ago he had a near syncopal episode. patient denies passing out. patient admitted to feeling fatigue and not drinking much water. patient Was seen by [facility] and had labs drawn including CBC, CMP, Hepaittis, HIV, and syphillis. REsults are pending. patient was treated as fungal rash on genitals by [facility]. Patient concerend herpes from unprotected sex. patient is anxious abouth other STDS. Patient denies any testicular pain, abdominal pain, nausea, vomtting, fever, chills, or urinary/bowel incontience. Patient denies any pleurisy, leg swelling, calf pain, recent long travel, recent surgery, or coughing up blood. Related Data Previous Rx's Medication Instructions Recorded docusate sodium 100 mg capsule 100 mg PO BID #20 caps 06/29/22 (Colace) ketorolac 10 mg tablet 10 mg PO TID PRN pain 5 days #15 06/29/22 tabs ondansetron 4 mg disintegrating 4 mg PO Q6H PRN nausea and 06/29/22 tablet vomiting #14 tabs polyethylene glycol 3350 17 17 g PO BID #238 grams 06/29/22 gram/dose oral powder (Miralax) sennosides 8.6 mg tablet (senna) 8.6 mg PO BEDTIME #14 tabs 06/29/22 naproxen 500 mg tablet 500 mg PO BID PRN pain 7 days #14 02/26/23 tabs Allergies Allergy/AdvReac Type Severity Reaction Status Date / Time amoxicillin Allergy Hives Verified 06/29/22 20:40 Review of Systems 2 Review of Systems: back pain, dysuria, white collection around penis, fatigue, unprotected sex, near syncope coule of days ago Yes all other systems are reviewed and are negative [facility] Past Medical History Medical History CHF (congestive heart failure) Diabetes Gastritis Inguinal hernia Social History Smoked in Last 30 Days: Yes Use of substances other than those prescribed or required for medical reasons: Yes Substance Use Type: Marijuana and Unknown Substance Use Frequency: Occasionally Advance Directives: No Advance Directives Information Provided: No Physical Exam 2 Vital Signs: Vital Signs: Last Vital Signs Temp 97.9 F 02/26/23 13:48 Pulse 88 02/26/23 13:48 Resp 16 02/26/23 13:48 BP 122/80 02/26/23 13:48 Pulse Ox 96 02/26/23 13:48 O2 Del Method Room Air 02/26/23 13:48 BMI result Body Mass Index 38.2 Const: General: cooperative, healthy appearing, comfortable, no acute distress, well developed, alert, awake and Physically active O rientation/consciousness: oriented to person, oriented to place, oriented to time and patient oriented x3 HEENT: Head: Yes normal to inspection, Yes No palpable skull fracture present, Yes normocephalic and Yes atraumatic Eyes: General: appearance normal, both eyes and all related structures Neck: Neck: Yes normal visual inspection, Yes full ROM, Yes no lymphadenopathy, Yes no meningeal signs, Yes trachea midline, Yes supple, No anterior neck swelling and No tender Chest: Chest palpation & inspection: normal inspection of the chest and normal palpation of entire chest wall Resp: Effort & Inspection: normal respiratory effort and able to speak in complete sentences Auscultation: clear to auscultation bilaterally Cardio: Jugular venous distension: no JVD Heart sounds: S1 normal heart sound present and S2 normal heart sound present GI: Inspection: Yes normal to inspection and No abdominal wall ecchymosis P alpation (GI): Soft to palpation, not firm, nontender, no guarding and not rigid : Other: Positive for canidida/fungi collection around penis. General: Yes no CVA tenderness Male General Exam: Yes normal external exam Penis: circumcised Meatus: meatus normal Scrotum: scrotum normal Testes: Testes normal Back/Spine/Pelvis: Back: no CVA tenderness, back tenderness (lumbar musclar tenderness) and other Skin: General skin exam: no rashes or lesions noted, elasticity normal and turgor normal Neuro: General: oriented to person, oriented to place, oriented to time, patient oriented x3, gait normal, tone normal, moves all extremities, Normal light touch and pain sensation, no meningeal signs, no focal motor deficits, CN's II-XI intact bilaterally and normal sensation to monofilament Extrem: Other: bilateral lower extremity negative for swelling, pitting edema,or calf tenderness. General: Yes normal to inspection and Yes full ROM Psych: Appearance: grossly normal, well kempt and not disheveled Medical Decision Making Medical Decision Making MDM Narrative: 37-year-old male with history diabetes and CHF and drug use preference PCP presents to ED for STI exposure, fatigue, low back pain, and fall onto back. Patient states unprotected sexual exposure occurred a week ago while on a PCP drug binge. Patient a admits to not eating well with plenty of unhealthy food ( suguar/carbs). Patient states no abdominal pain, nausea, or, vomiting. Patient states back pain on movement. Patient states no fever and chills. Due to history of diabetes, CHF and drug use will check for rhabdomylosis, DKA, CHF exacrbation. Patient states also near syncopal episodes couple days ago due to fatigue will do EKG and troponin. Patient denies actually passing out. Patient denies any chest pain, headache, or abdominal pain before near syncopal episode. Patient states no recent long or travel recent surgery. EKG ordered. Patient denies any urinary/bowel incontinence. 3:00pm: EKG negative for STEMI, two troponins negative, BNP negative. negative rhabdomylisis. Electrolyes normal. negative for DKA. CT/NG negative. HSV pending. Xray of lumbar shows radicuolpathy. Patient not anemic. Chest xray negative pneumonia. Patietn will follow up with [facility] tomorrow. Not suspecting stroke, PE, fluid overolad, epidural abscess, cauda equina, or any abdominal etiotlogy. Patient educated on worrisome sigsn and informed to return to the ED immeidatley. Patient already prescribed treatment for fungal rash on genitals by [facility] Differential Diagnosis Differential Diagnoses: The differential diagnosis associated with the presentation includes ( DKA, rhabdomyolysis, CHF, myocardial infarction, lumbar spine fracture, lumbar radiculopathy, kidney stones, UTI,) Admission/Observation Consideration of admission/observation: Escalation of care including admission/observation considered Lab Data MDM Lab Attestation statement: I reviewed the patient's lab results. 02/26/23 11:51 02/26/23 11:51 Labs: Lab Results 02/26/23 02/26/23 02/26/23 Range/Units 11:51 12:20 14:13 WBC 11.6 H (4.8-10.8) X10*3/uL RBC 4.94 (4.60-5.80) X10*6/uL Hgb 14.5 (14.0-18.0) g/dl Hct 42.1 (42.0-52.0) % MCV 85.2 (80.0-98.0) fL MCH 29.4 (27.0-33.0) pg MCHC 34.4 (31.0-36.0) g/dl RDW 12.5 (11.0-16.0) % Plt Count 305 (160-400) X10*3/uL MPV 10.0 (9.4-12.4) fL Immature Gran % (Auto) 0.3 (0.0-0.4) % Neut % (Auto) 58.9 (45-73) % Lymph % (Auto) 29.5 (20-40) % [place] % (Auto) 7.5 (2-11) % Eos % (Auto) 2.9 (0-4) % Baso % (Auto) 0.9 (0-2) % Lymph # (Auto) 3.4 (1.2-4.9) X10*3/uL [place] # (Auto) 0.9 (0.1-1.2) X10*3/uL Eos # (Auto) 0.3 (0.0-0.4) X10*3/uL Baso # (Auto) 0.1 (0.0-0.2) X10*3/uL Abs Immat Gran (auto) 0.04 H (0.00-0.03) X10*3/uL Absolute Neuts (auto) 6.8 (2.0-8.3) x10*3/uL Absolute Nucleated RBC 0.000 (0.0-0.012) X10*3/uL Nucleated RBC % (auto) 0.0 (0.0-0.2) /100WBC PT 11.0 L (11.1-13.3) SEC INR 0.9 (0.9-1.1) APTT 25.1 L (26.0-36.4) SEC Sodium 141 (135-145) mmol/L Potassium 4.4 (3.3-5.1) mmol/L Chloride 106 (96-108) mmol/L Carbon Dioxide 25 (22-29) mmol/L Anion Gap 14 (12-20) BUN 16 (9-16) mg/dL Creatinine 1.08 (0.5-1.4) mg/dL Estim Creat Clear Calc 112.2 Estimated GFR > 60 POC Glucose 122 H (60-115) mg/dL Random Glucose 127 H (60-115) mg/dL Calcium 10.0 D (8.4-10.2) mg/dL Magnesium 2.3 (1.6-2.6) mg/dL Total Bilirubin 0.6 (0.0-1.0) mg/dL AST 27 (5-37) U/L ALT 22 (0-40) U/L Alkaline Phosphatase 88 (39-117) U/L Total Creatine Kinase 328 H (38-174) U/L Troponin I High Sens 9.5 D 8.5 (<3.5-35.0) ng/L B-Natriuretic Peptide < 10 (<100) pg/mL Total Protein 8.4 H (6.5-8.0) g/dL Albumin 4.5 (3.5-5.0) g/dL Urine Color Yellow Urine Appearance Clear Urine pH 5.5 (5.0-9.0) Ur Specific [place] >= 1.030 H (1.005-1.025) Urine Protein Negative (Neg-Trace) mg/dL Urine Glucose (UA) >=1000 H (Negative) mg/dL Urine Ketones Negative (Negative) mg/dL Urine Blood Negative (Negative) Urine Nitrite Negative (Negative) Ur Leukocyte Esterase Negative (Negative) Urine RBC 0-2 (0-2) /HPF Urine WBC 0-5 (0-5) /HPF Ur Squamous Epith Cells 0-2 (0-2) /HPF Urine Bacteria None Seen (None Seen) Hyaline Casts 0-2 (0-2) /LPF Urine Opiates Screen Not Detected (Not Detect) Urine Fentanyl Screen Not Detected (Not Detect) Ur Barbiturates Screen Not Detected (Not Detect) Ur Phencyclidine Scrn POSITIVE H (Not Detect) Ur Amphetamines Screen Not Detected (Not Detect) U Benzodiazepines Scrn Not Detected (Not Detect) Urine Cocaine Screen Not Detected (Not Detect) U Marijuana (THC) Screen Not Detected (Not Detect) Chlam trachomat DNA PCR NOT DETECTED (Not Detect.) COVID-19 (JOSELINE) Negative (Negative) COVID-19 Clin Com See Note Influenza Type A (ABUNDIO) Negative (Negative) Influenza Type B (ABUNDIO) Negative (Negative) Influenza A & B Note See Note N.gonorrhoeae DNA (PCR) NOT DETECTED (Not Detect.) Independent Interpretation I performed an independent interpretation of an: EKG ( negative STEMI) and Plain X-Ray Radiology Impression Discussion of test interpretation with radiology: I have reviewed the radiologist's reading. External Record Review External record reviewed: Other ( prior visit) Prescription Management I considered prescription management with: Pain Medication Discharge Plan Discharge Clinical Impression: Lumbar radiculopathy, Possible exposure to STD, Near syncope Patient Disposition: Home, Self-Care Instructions: Lumbar Radiculopathy (ED), Near Syncope (ED) Additional Instructions: Back x-ray shows lumbar spine arthritis. You came back negative for chlamydia and gonorrhea. You will be called with herpes results if positive. Blood work for your heart came back negative for heart attack and negative for heart failure. X-ray chest is normal. Electrolytes are normal. Please follow-up with her primary care provider. Return to the ED immediately for any chest pain, shortness of breath, chest pain on inspiration, leg swelling, calf pain, coughing up blood, penile discharge, penile lesions, testicular pain, flank pain, urinary / bowel incontinence, abdominal pain, nausea, vomiting, coughing up blood, or any other concerning symptoms. Also recommend follow-up with [facility] we had the labs drawn yesterday. Prescriptions: New naproxen 500 mg tablet 500 mg PO BID PRN (Reason: pain) 7 Days Qty: 14 0RF No Action sennosides [senna] 8.6 mg tablet 8.6 mg PO BEDTIME Qty: 14 0RF docusate sodium [Colace] 100 mg capsule 100 mg PO BID Qty: 20 0RF polyethylene glycol 3350 [Miralax] 17 gram/dose powder 17 g PO BID Qty: 238 0RF ondansetron 4 mg tablet,disintegrating 4 mg PO Q6H PRN (Reason: nausea and vomiting) Qty: 14 0RF ketorolac 10 mg tablet 10 mg PO TID PRN (Reason: pain) 5 Days Qty: 15 0RF Interventions: ED Discharge Assessment Last Done: 02/26/23 15:48 Discharge Date/Time: 02/26/23 15:48 Print Language: Omani
[2023-02-26 12:05] LABS: Basophils Absolute Auto 0.1 X10*3/uL (0.0-0.2); Basophils Percent Auto 0.9 % (0-2); Eosinophils Absolute Auto 0.3 X10*3/uL (0.0-0.4); Eosinophils Percent Auto 2.9 % (0-4); Hematocrit 42.1 % (42.0-52.0); Hemoglobin 14.5 g/dl (14.0-18.0); Imm Gran Abs Auto 0.04 X10*3/uL (0.00-0.03); Imm Gran Pct Auto 0.3 % (0.0-0.4); Lymphocytes Absolute Auto 3.4 X10*3/uL (1.2-4.9); Lymphocytes Percent Auto 29.5 % (20-40); MANUAL DIFF FLAG NO; Mean Corpuscular HGB Conc 34.4 g/dl (31.0-36.0); Mean Corpuscular Hemoglobin 29.4 pg (27.0-33.0); Mean Corpuscular Volume 85.2 fL (80.0-98.0); Monocytes Absolute Auto 0.9 X10*3/uL (0.1-1.2); Monocytes Percent Auto 7.5 % (2-11); Neutrophils Absolute Auto 6.8 x10*3/uL (2.0-8.3); Neutrophils Percent Auto 58.9 % (45-73); Platelet Count 305 X10*3/uL (160-400); Red Blood Count 4.94 X10*6/uL (4.60-5.80); Red Cell Distribution Width 12.5 % (11.0-16.0); White Blood Count 11.6 X10*3/uL (4.8-10.8)
[2023-02-26 12:07] LABS: Appearance Urine Clear; Color Urine Yellow; Glucose Urine UA >=1000 mg/dL (Negative); Leukocyte Esterase Urine Negative (Negative); Nitrite Urine Negative (Negative); PH 5.5 (5.0-9.0); Specific Gravity - Urine >= 1.030 (1.005-1.025); UMIC TRIGGER UACC YES; Urine Blood Negative (Negative); Urine Ketones Negative (Negative); Urine Protein Negative (Neg-Trace)
[2023-02-26 12:11] LABS: Bacteria Urine None Seen (None Seen); Hyaline Casts Urine 0-2 /LPF (0-2); RBC Urine 0-2 /HPF (0-2); Squamous Epithelial Cell Urine 0-2 /HPF (0-2); WBC Urine 0-5 /HPF (0-5)
[2023-02-26 12:14] LABS: Amphetamine Screen Urine Not Detected (Not Detect); Barbiturates, Urine Not Detected (Not Detect); Benzodiazepines Screen Urine Not Detected (Not Detect); Cannabinoid Screen Urine Not Detected (Not Detect); Cocaine Screen Urine Not Detected (Not Detect); Fentanyl, urine Not Detected (Not Detect); Opiate Screen Urine Not Detected (Not Detect); Phencyclidine Screen Urine POSITIVE (Not Detect)
[2023-02-26 12:17] LABS: INTERNATIONAL NORM RATIO 0.9 (0.9-1.1)
[2023-02-26 12:20] LABS: Partial Thromboplastin Time 25.1 SEC (26.0-36.4)
[2023-02-26 12:21] LABS: COVID-19 Test Negative (Negative); IDNOW Serial# 08D9AD1C
[2023-02-26 12:24] LABS: Glucose, Whole Blood 122 mg/dL (60-115)
[2023-02-26 12:26] LABS: Anion Gap 14 (12-20); Magnesium 2.3 mg/dL (1.6-2.6)
[2023-02-26 12:27] LABS: Troponin-I High Sensitivity 9.5 ng/L (<3.5-35.0)
[2023-02-26 12:29] LABS: B Type Natriuretic Peptide < 10 pg/mL (<100); IDNOW Serial# BCCEAD1C; Influenza A Negative (Negative); Influenza B2 Negative (Negative)
[2023-02-26 12:31] LABS: Alanine Aminotransferase 22 U/L (0-40); Albumin Level 4.5 g/dL (3.5-5.0); Alkaline Phosphatase 88 U/L (39-117); Aspartate Amino Transferase 27 U/L (5-37); Bilirubin Total 0.6 mg/dL (0.0-1.0); Blood Urea Nitrogen 16 mg/dL (9-16); Carbon Dioxide 25 mmol/L (22-29); Chloride 106 mmol/L (96-108); Creatinine Clr Calc Pharmacy 112.2; Estimated Glomerular Filt Rate > 60; Glucose Random 127 mg/dL (60-115); Potassium 4.4 mmol/L (3.3-5.1); Sodium 141 mmol/L (135-145); Total Protein 8.4 g/dL (6.5-8.0)
[2023-02-26 13:37] LABS: CT PCR NOT DETECTED (Not Detect.); NG PCR NOT DETECTED (Not Detect.)
[2023-02-26 13:48] VITALS: BP 122/80; PULSE 88; RESP 16; TEMP 36.6; O2SAT 96
[2023-02-26 14:38] LABS: Troponin-I High Sensitivity 8.5 ng/L (<3.5-35.0)
== END 2023-02-26 15:48 | disposition home or self-care (01) ==
PROVIDERS: Physician Assistant; Emergency Provider Emergency Medicine; PCP Registered Nurse
DX: M54.16 Radiculopathy, lumbar region (principal); R55 Syncope and collapse; Z20.2 Contact with and (suspected) exposure to infections with a predominantly sexual mode of transmission; Z11.52 Encounter for screening for COVID-19; E11.9 Type 2 diabetes mellitus without complications; F12.90 Cannabis use, unspecified, uncomplicated; Z79.899 Other long term (current) drug therapy
CPT/HCPCS: 0353U; 36415; 71045; 72100; 80053; 80307; 81001; 82550; 82947; 83735; 83880; 84484; 85025; 85610; 85730; 87255; 87502; 87635; 93005; 99284

== ENCOUNTER 2023-03-04 15:11 | Outpatient (REF) | payer MEDICAID, SELFPAY ==
[2023-03-04 16:18] LABS: MANUAL DIFF FLAG NO
[2023-03-04 16:23] LABS: Basophils Absolute Auto 0.1 X10*3/uL (0.0-0.2); Basophils Percent Auto 1.2 % (0-2); Eosinophils Absolute Auto 0.3 X10*3/uL (0.0-0.4); Eosinophils Percent Auto 2.9 % (0-4); Hematocrit 44.4 % (42.0-52.0); Imm Gran Abs Auto 0.04 X10*3/uL (0.00-0.03); Imm Gran Pct Auto 0.4 % (0.0-0.4); Lymphocytes Absolute Auto 3.3 X10*3/uL (1.2-4.9); Lymphocytes Percent Auto 30.2 % (20-40); Mean Corpuscular HGB Conc 33.8 g/dl (31.0-36.0); Mean Corpuscular Hemoglobin 29.6 pg (27.0-33.0); Mean Corpuscular Volume 87.6 fL (80.0-98.0); Monocytes Absolute Auto 0.8 X10*3/uL (0.1-1.2); Monocytes Percent Auto 6.9 % (2-11); Neutrophils Absolute Auto 6.4 x10*3/uL (2.0-8.3); Neutrophils Percent Auto 58.4 % (45-73); Platelet Count 351 X10*3/uL (160-400); Red Blood Count 5.07 X10*6/uL (4.60-5.80); Red Cell Distribution Width 12.5 % (11.0-16.0)
[2023-03-04 16:48] LABS: Alanine Aminotransferase 19 U/L (0-40); Albumin Level 4.5 g/dL (3.5-5.0); Alkaline Phosphatase 77 U/L (39-117); Anion Gap 12 (12-20); Aspartate Amino Transferase 20 U/L (5-37); Bilirubin Total 0.5 mg/dL (0.0-1.0); Blood Urea Nitrogen 17 mg/dL (9-16); Calcium 9.8 mg/dL (8.4-10.2); Carbon Dioxide 27 mmol/L (22-29); Chloride 106 mmol/L (96-108); Estimated Glomerular Filt Rate > 60; Glucose Random 111 mg/dL (60-115); Potassium 4.3 mmol/L (3.3-5.1); Sodium 141 mmol/L (135-145)
[2023-03-05 08:48] LABS: Syphilis Screen Nonreactive (Nonreactive)
[2023-03-05 09:29] LABS: HBS Num1 > 1000.00 mIU/mL (0-7.99); HBsAGNum1 0.26 S/CO (0.00-0.99); HIV AB/AG Nonreactive (Nonreactive); HIV Num 1 0.05 S/CO (0.00-0.99); Hepatitis B Surface Antigen Negative (Negative); ~HepC Num1 0.11 S/CO (0.00-0.79); ~Hepatitis B Surface Antibody REACTIVE (Nonreactive); ~Hepatitis C Antibody Nonreactive (Nonreactive)
== END 2023-03-04 15:12 | disposition home or self-care (01) ==
LOC: HO.HHCL 15:11
PROVIDERS: Visit Provider Registered Nurse
DX: Z11.4 Encounter for screening for human immunodeficiency virus [HIV] (principal); N50.89 Other specified disorders of the male genital organs
CPT/HCPCS: 36415; 80053; 85025; 86706; 86780; 86803; 87340; 87389

== ENCOUNTER 2023-03-13 13:34 | Outpatient (REF) | payer MEDICAID, SELFPAY | END 2023-03-13 13:35 | disposition home or self-care (01) | LOC: HO.HHCL 13:34 | PROVIDERS: Visit Provider Emergency Medicine | DX: R12 Heartburn (principal) | CPT/HCPCS: 87338 ==

== ENCOUNTER 2023-03-20 18:50 | Emergency (ER) | payer MEDICAID, SELFPAY ==
[2023-03-20 19:34] VITALS: BP 126/85; PULSE 89; RESP 18; TEMP 36.9; O2SAT 97; BMI 37.5
--- NOTE | 2023-03-20 19:35 | ED.GENADULT ---
HPI - General Adult General Chief complaint: Skin/Abscess/Foreign Body Stated complaint: Rash Time Seen by Provider: 03/20/23 21:15 Source: patient History of Present Illness HPI narrative: 37-year-old male with a history of diabetes, heart failure, who presents for evaluation of a rash. Patient states that he began to have a rash yesterday that progressively worsened today. Is located on his arms bilaterally. He denies any history of similar symptoms. He has not tried any medication for this. He denies any fevers chills nausea or vomiting. No new contacts, detergents, soaps. He does report that he is staying at a nursing home recently. No fevers chills nausea vomiting. Patient otherwise feeling well. Related Data Previous Rx's Medication Instructions Recorded docusate sodium 100 mg capsule 100 mg PO BID #20 caps 06/29/22 (Colace) ketorolac 10 mg tablet 10 mg PO TID PRN pain 5 days #15 06/29/22 tabs ondansetron 4 mg disintegrating 4 mg PO Q6H PRN nausea and 06/29/22 tablet vomiting #14 tabs polyethylene glycol 3350 17 17 g PO BID #238 grams 06/29/22 gram/dose oral powder (Miralax) sennosides 8.6 mg tablet (senna) 8.6 mg PO BEDTIME #14 tabs 06/29/22 naproxen 500 mg tablet 500 mg PO BID PRN pain 7 days #14 02/26/23 tabs dexamethasone 4 mg tablet 4 mg PO BID #8 tabs 03/20/23 hydroxyzine HCl 25 mg tablet 25 mg PO TID PRN itching #20 tabs 03/20/23 Allergies Allergy/AdvReac Type Severity Reaction Status Date / Time amoxicillin Allergy Hives Verified 03/20/23 19:39 Review of Systems Constitutional: Constitutional: Denies chills and Denies fever(s) Cardiovascular: Cardiovascular: Denies chest pain, Denies dyspnea, Denies dyspnea on exertion and Denies orthopnea Respiratory: Respiratory: Denies cough, Denies dyspnea and Denies dyspnea on exertion Gastrointestinal: Gastrointestinal: Denies abdominal pain, Denies melena, Denies hematochezia, Denies diarrhea, Denies nausea and Denies vomiting Genitourinary: Genitourinary: Denies difficulty urinating, Denies dysuria and Denies urinary urgency Musculoskeletal: Musculoskeletal: Denies back pain, Denies muscle weakness and Denies numbness Integumentary/Breasts: Skin/Breast: Reports rash Neurologic: Denies focal weakness and Denies numbness Psychiatric: Psychiatric: Denies depression [facility] Past Medical History Attestation statement: The following information was validated with the patient. Medical History Gastritis Diabetes CHF (congestive heart failure) Inguinal hernia Social History Social History Substance Use Type: Marijuana and Unknown Advance Directives: No Advance Directives Information Provided: No Physical Exam ED Vital Signs: Vital Signs - 24 hr 03/20/23 19:34 Temperature 98.5 F Pulse Rate 89 Respiratory Rate 18 Blood Pressure 126/85 Pulse Oximetry 97 Oxygen Delivery Method Room Air BMI result Body Mass Index 37.5 Const General: cooperative Orientation/consciousness: patient oriented x3 Resp Auscultation: clear to auscultation bilaterally Cardio Rate: regular rate Rhythm: regular rhythm Skin Other: Erythematous papules scattered on the anterior aspect of the upper extremities to the elbows bilaterally. There are no lesions on the palms or dorsum of the hand. No streaking no discharge. No vesicles. No linear pattern. No secondary signs of infection. Neuro General: patient oriented x3 Course Course Course Narrative: RME performed by Alyssa Sahu PA-C. Patient is a 37 year old assigned male at presenting to the emergency department with a bilateral arm rash. Patient adamant something else is going on then just being allergic to something. Patient wants labs drawn. Labs ordered. Patient placed back in the waiting room pending room availability and results. Medical Decision Making Medical Decision Making MDM Narrative: 37-year-old male with a history of diabetes, heart failure, homelessness, currently staying at a nursing home which is new for the patient. Suspect contact dermatitis which is likely from bedbugs. Lower suspicion for scabies given the clinical pattern. Could also possibly contact dermatitis. The rash is only confined to exposed areas of his upper extremities. No secondary signs of infection. Trial of Decadron with caution given that the patient has diabetes. Hydroxyzine for itching. Patient feels comfortable with discharge plan home. No further questions at this time. Differential Diagnosis Differential Diagnoses: The differential diagnosis associated with the presentation includes Scabies Contact dermatitis Bedbugs Cellulitis Folliculitis Lab Data MDM Lab Attestation statement: I reviewed the patient's lab results. 03/20/23 19:47 03/20/23 19:47 Labs: Lab Results 03/20/23 Range/Units 19:47 WBC 14.4 H (4.8-10.8) X10*3/uL RBC 5.28 (4.60-5.80) X10*6/uL Hgb 15.5 (14.0-18.0) g/dl Hct 44.7 (42.0-52.0) % MCV 84.7 (80.0-98.0) fL MCH 29.4 (27.0-33.0) pg MCHC 34.7 (31.0-36.0) g/dl RDW 12.6 (11.0-16.0) % Plt Count 317 (160-400) X10*3/uL MPV 9.2 L (9.4-12.4) fL Immature Gran % (Auto) 0.3 (0.0-0.4) % Neut % (Auto) 56.3 (45-73) % Lymph % (Auto) 34.4 (20-40) % [place] % (Auto) 5.8 (2-11) % Eos % (Auto) 2.4 (0-4) % Baso % (Auto) 0.8 (0-2) % Lymph # (Auto) 4.9 (1.2-4.9) X10*3/uL [place] # (Auto) 0.8 (0.1-1.2) X10*3/uL Eos # (Auto) 0.3 (0.0-0.4) X10*3/uL Baso # (Auto) 0.1 (0.0-0.2) X10*3/uL Abs Immat Gran (auto) 0.05 H (0.00-0.03) X10*3/uL Absolute Neuts (auto) 8.1 (2.0-8.3) x10*3/uL Absolute Nucleated RBC 0.000 (0.0-0.012) X10*3/uL Nucleated RBC % (auto) 0.0 (0.0-0.2) /100WBC ESR 12 (0-15) MM/HR Sodium 142 (135-145) mmol/L Potassium 3.8 (3.3-5.1) mmol/L Chloride 106 (96-108) mmol/L Carbon Dioxide 23 (22-29) mmol/L Anion Gap 17 (12-20) BUN 20 H (9-16) mg/dL Creatinine 1.08 (0.5-1.4) mg/dL Estim Creat Clear Calc 111.1 Estimated GFR > 60 Random Glucose 140 H (60-115) mg/dL Calcium 10.0 (8.4-10.2) mg/dL Magnesium 2.5 (1.6-2.6) mg/dL Total Bilirubin 0.5 (0.0-1.0) mg/dL AST 18 (5-37) U/L ALT 21 (0-40) U/L Alkaline Phosphatase 84 (39-117) U/L C-Reactive Protein 0.26 (< or = 0.50) mg/dL Total Protein 8.2 H (6.5-8.0) g/dL Albumin 4.5 (3.5-5.0) g/dL Chronic Conditions Patient?s care impacted by: Diabetes Social Determinants Patient?s care significantly limited by Social Determinants of Health including: Inadequate housing Discharge Plan Discharge Clinical Impression: Contact dermatitis, Infestation by bed bug Patient Disposition: Home, Self-Care Instructions: Contact Dermatitis (ED) Additional Instructions: Your rash could be caused by something you came into contact with, such as bedbugs. Wash all of your clothing and bedding and any towels in hot water. Hydroxyzine as directed for itching. Decadron as directed. This will cause your sugar to go up. Closely monitor. Follow-up with your primary care provider. Call this week to schedule a follow-up appointment. Return to the emergency department if you have any worsening of symptoms, or any concerns. Get well soon! Prescriptions: New dexamethasone 4 mg tablet 4 mg PO BID Qty: 8 0RF hydroxyzine HCl 25 mg tablet 25 mg PO TID PRN (Reason: itching) Qty: 20 0RF No Action sennosides [senna] 8.6 mg tablet 8.6 mg PO BEDTIME Qty: 14 0RF docusate sodium [Colace] 100 mg capsule 100 mg PO BID Qty: 20 0RF polyethylene glycol 3350 [Miralax] 17 gram/dose powder 17 g PO BID Qty: 238 0RF ondansetron 4 mg tablet,disintegrating 4 mg PO Q6H PRN (Reason: nausea and vomiting) Qty: 14 0RF ketorolac 10 mg tablet 10 mg PO TID PRN (Reason: pain) 5 Days Qty: 15 0RF naproxen 500 mg tablet 500 mg PO BID PRN (Reason: pain) 7 Days Qty: 14 0RF
[2023-03-20 19:50] LABS: MANUAL DIFF FLAG NO
[2023-03-20 19:52] LABS: Basophils Absolute Auto 0.1 X10*3/uL (0.0-0.2); Basophils Percent Auto 0.8 % (0-2); Eosinophils Absolute Auto 0.3 X10*3/uL (0.0-0.4); Eosinophils Percent Auto 2.4 % (0-4); Hematocrit 44.7 % (42.0-52.0); Hemoglobin 15.5 g/dl (14.0-18.0); Imm Gran Abs Auto 0.05 X10*3/uL (0.00-0.03); Imm Gran Pct Auto 0.3 % (0.0-0.4); Lymphocytes Absolute Auto 4.9 X10*3/uL (1.2-4.9); Lymphocytes Percent Auto 34.4 % (20-40); Mean Corpuscular HGB Conc 34.7 g/dl (31.0-36.0); Mean Corpuscular Hemoglobin 29.4 pg (27.0-33.0); Mean Corpuscular Volume 84.7 fL (80.0-98.0); Mean Platelet Volume 9.2 fL (9.4-12.4); Monocytes Absolute Auto 0.8 X10*3/uL (0.1-1.2); Monocytes Percent Auto 5.8 % (2-11); Neutrophils Absolute Auto 8.1 x10*3/uL (2.0-8.3); Neutrophils Percent Auto 56.3 % (45-73); Platelet Count 317 X10*3/uL (160-400); Red Blood Count 5.28 X10*6/uL (4.60-5.80); Red Cell Distribution Width 12.6 % (11.0-16.0); White Blood Count 14.4 X10*3/uL (4.8-10.8)
[2023-03-20 20:05] LABS: Alanine Aminotransferase 21 U/L (0-40); Albumin Level 4.5 g/dL (3.5-5.0); Alkaline Phosphatase 84 U/L (39-117); Anion Gap 17 (12-20); Aspartate Amino Transferase 18 U/L (5-37); Bilirubin Total 0.5 mg/dL (0.0-1.0); Blood Urea Nitrogen 20 mg/dL (9-16); C Reactive Protein 0.26 mg/dL (< or = 0.50); Carbon Dioxide 23 mmol/L (22-29); Chloride 106 mmol/L (96-108); Creatinine Clr Calc Pharmacy 111.1; Estimated Glomerular Filt Rate > 60; Glucose Random 140 mg/dL (60-115); Magnesium 2.5 mg/dL (1.6-2.6); Potassium 3.8 mmol/L (3.3-5.1); Sodium 142 mmol/L (135-145); Total Protein 8.2 g/dL (6.5-8.0)
[2023-03-20 20:36] LABS: Erythrocyte Sedimentation Rate 12 MM/HR (0-15)
[2023-03-20] MEDS: dexAMETHasone sod phosphate 4 MG/ML VIAL 8 MG IVPUSH (21:50)
== END 2023-03-20 21:57 | disposition home or self-care (01) ==
PROVIDERS: Physician Assistant Medical; Emergency Provider Internal Medicine; PCP Registered Nurse
DX: L25.9 Unspecified contact dermatitis, unspecified cause (principal); L29.9 Pruritus, unspecified; Z79.899 Other long term (current) drug therapy
CPT/HCPCS: 36415; 80053; 83735; 85025; 85652; 86140; 99283; J1100

== ENCOUNTER 2023-04-12 02:29 | Emergency (ER) | payer MEDICAID, SELFPAY ==
[2023-04-12 02:36] VITALS: BP 103/66; PULSE 81; RESP 18; TEMP 36.6; O2SAT 96; BMI 38.6
[2023-04-12 03:14] VITALS: BP 113/66; PULSE 71; RESP 14; TEMP 36.5
--- NOTE | 2023-04-12 03:52 | ED.MALEGU ---
HPI - Male Genitourinary General Chief complaint: Urogenital-Male Stated complaint: hernia/pain Time Seen by Provider: 04/12/23 02:46 Source: patient Mode of arrival: ambulatory Limitations: no limitations History of Present Illness HPI Narrative: 37-year-old male with history of diabetes and inguinal hernia came in for evaluation of urinary symptoms Started about 2 weeks ago. Patient is diabetic controlled with metformin came in for the past 2 weeks has been having increased frequency, patient has to urinate otherwise he will have urinary incontinence. For the past 2 weeks patient been having overnight urinary incontinence, patient control his diabetes with metformin 500 mg b.i.d. blood sugar running high causing polyuria and polydipsia. Patient otherwise declined any other neurological deficit, no history of IV drug abuse, no fever, no back pain. No problem with bowel movement, no diarrhea. Related Data Previous Rx's Medication Instructions Recorded docusate sodium 100 mg capsule 100 mg PO BID #20 caps 06/29/22 (Colace) ketorolac 10 mg tablet 10 mg PO TID PRN pain 5 days #15 06/29/22 tabs ondansetron 4 mg disintegrating 4 mg PO Q6H PRN nausea and 06/29/22 tablet vomiting #14 tabs polyethylene glycol 3350 17 17 g PO BID #238 grams 06/29/22 gram/dose oral powder (Miralax) sennosides 8.6 mg tablet (senna) 8.6 mg PO BEDTIME #14 tabs 06/29/22 naproxen 500 mg tablet 500 mg PO BID PRN pain 7 days #14 02/26/23 tabs dexamethasone 4 mg tablet 4 mg PO BID #8 tabs 03/20/23 hydroxyzine HCl 25 mg tablet 25 mg PO TID PRN itching #20 tabs 03/20/23 Allergies Allergy/AdvReac Type Severity Reaction Status Date / Time amoxicillin Allergy Hives Verified 03/20/23 19:39 Review of Systems Review of Systems: All other systems are reviewed and are negative Constitutional: Reports as per HPI and Reports no additional constitutional complaints Eyes: Reports as per HPI and Reports no additional eye complaints Reports system reviewed and no additional complaints, except as documented Cardiovascular: Reports as per HPI and Reports no additional cardiovascular complaints Respiratory: Reports as per HPI and Reports no additional respiratory complaints Gastrointestinal: Reports as per HPI and Reports no additional gastrointestinal complaints Genitourinary: Reports no additional female genitourinary complaints Musculoskeletal: Reports no additional musculoskeletal complaints Skin/Breast: Reports system reviewed and no additional complaints, except as docu Psychiatric: Reports no additional psychiatric complaints Endocrine: Reports no additional endocrine complaints Hematologic/Lymphatic: Reports no additional hematologic/lymphatic complaints Allergic/Immunologic: Reports no additional allergic/immunologic complaints Reports system reviewed and no additional complaints, except as documented and Reports Abnormal speech present PMFSH Past Medical History Onset Date is defined in the Problem List Problems that require an onset date and time if occurred within 24 hrs of arrival to the ED Aortic Dissection and Rupture; Neurologic impairment; Cardiopulmonary Arrest; Endotracheal Intubation; Insertion or Replacement of Mechanical Circulatory Assist Device Medical History Gastritis Diabetes CHF (congestive heart failure) Inguinal hernia Social History Social History Smoked in Last 30 Days: Yes Use of substances other than those prescribed or required for medical reasons: No Substance Use Type: Marijuana and Unknown Advance Directives: No Advance Directives Information Provided: No Physical Exam Vital Signs: Vital Signs: Last Vital Signs Temp 97.7 F 04/12/23 03:14 Pulse 71 04/12/23 03:14 Resp 14 04/12/23 03:14 BP 113/66 04/12/23 03:14 Pulse Ox 96 04/12/23 02:36 O2 Del Method Room Air 04/12/23 02:36 BMI result Body Mass Index 38.6 Vital signs have been reviewed and appear to be correct. Blood pressure elevated. Heart rate normal. Respiratory rate normal. Temperature normal. Oxygen saturation normal. . Appearance: Alert. Oriented X3. No acute distress. Head: Normal external exam. Normocephalic. Atraumatic. No Herrera signs noted. No raccoon eyes noted Eyes: PERRLA. EOMI. Conjunctiva and sclera normal. Eyelids normal. ENT: TM's Normal. Pharynx normal. Uvula midline. Moist mucous membranes. No trismus noted. No drooling noted. No muffled voice noted. Neck: Normal inspection. Neck supple. FROM. No adenopathy. Thyroid Normal. No meningeal signs. No neck mass noted. CVS: Normal heart rate and rhythm. Heart sound normal. No murmurs noted. Pulses normal throughout. Respiratory: No respiratory distress. Painless inspiration. Breath sounds normal. No wheezes/rales/rhonchi noted. Chest nontender. No accessory muscle usage noted or decreased air movement noted. Abdomen: Soft and nontender. Bowel sounds normal in all 4 quadrants. No distention noted. No organomegaly noted. No visible injury noted. exam: Left inguinal hernia that is nontender and reducible. Back: No CVA tenderness. Full range of motion noted. No reproducible back pain. Or point of tenderness. Skin: Skin warm and dry. Normal skin color. Normal skin turgor. No rashes/lesions/lacerations noted. Extremities: No lower extremity edema. Extremities exhibit normal range of motion. Extremities nontender. Neuro: Oriented X 3. Cranial nerve exam: II-XII are grossly intact No motor deficit. No sensory deficit. Reflexes normal. Perianal sensation is intact Course Reevaluation(s) Reevaluation #1: poorly controlled Type 2 diabetes causing polyuria and polydipsia which would explain patient's urine incontinence no history of IV drug abuse, no fever, no back pain, presence of perianal sensation would rule out incontinence due to compression on the spinal canal or thecal canal. Time: 06:52 Medications Administered Discontinued Medications Generic Name Dose Route Start Last Admin Trade Name Freq PRN Reason Stop Dose Admin Sodium Chloride 1,000 mls @ 999 mls/hr 04/12/23 03:16 04/12/23 04:43 Ns IV 04/12/23 04:16 Infused .Q1H1M ONE Infusion Medical Decision Making Differential Diagnosis Differential Diagnoses: The differential diagnosis associated with the presentation includes ( spinal cord compression, cauda equina syndrome, uncontrolled diabetes mellitus, UTI.) Admission/Observation Consideration of admission/observation: Escalation of care including admission/observation considered Lab Data MDM Lab Attestation statement: I reviewed the patient's lab results. 04/12/23 03:41 04/12/23 03:41 Labs: Lab Results 04/12/23 04/12/23 Range/Units 03:05 03:41 WBC 12.0 H (4.8-10.8) X10*3/uL RBC 4.87 (4.60-5.80) X10*6/uL Hgb 14.6 (14.0-18.0) g/dl Hct 41.9 L (42.0-52.0) % MCV 86.0 (80.0-98.0) fL MCH 30.0 (27.0-33.0) pg MCHC 34.8 (31.0-36.0) g/dl RDW 12.9 (11.0-16.0) % Plt Count 266 (160-400) X10*3/uL MPV 9.7 (9.4-12.4) fL Immature Gran % (Auto) 0.6 H (0.0-0.4) % Neut % (Auto) 43.2 L (45-73) % Lymph % (Auto) 44.4 H (20-40) % [place] % (Auto) 7.4 (2-11) % Eos % (Auto) 3.6 (0-4) % Baso % (Auto) 0.8 (0-2) % Lymph # (Auto) 5.3 H (1.2-4.9) X10*3/uL [place] # (Auto) 0.9 (0.1-1.2) X10*3/uL Eos # (Auto) 0.4 (0.0-0.4) X10*3/uL Baso # (Auto) 0.1 (0.0-0.2) X10*3/uL Abs Immat Gran (auto) 0.07 H (0.00-0.03) X10*3/uL Absolute Neuts (auto) 5.2 (2.0-8.3) x10*3/uL Absolute Nucleated RBC 0.000 (0.0-0.012) X10*3/uL Nucleated RBC % (auto) 0.0 (0.0-0.2) /100WBC Smear Tech's Comments VERIFIED Sodium 141 (135-145) mmol/L Potassium 3.8 (3.3-5.1) mmol/L Chloride 104 (96-108) mmol/L Carbon Dioxide 27 (22-29) mmol/L Anion Gap 14 (12-20) BUN 14 (9-16) mg/dL Creatinine 0.87 (0.5-1.4) mg/dL Estim Creat Clear Calc 140.1 Estimated GFR > 60 Random Glucose 229 H (60-115) mg/dL Calcium 9.8 (8.4-10.2) mg/dL Total Bilirubin 0.4 (0.0-1.0) mg/dL Direct Bilirubin 0.1 (0.0-0.5) mg/dL AST 13 (5-37) U/L ALT 21 (0-40) U/L Alkaline Phosphatase 94 (39-117) U/L Total Protein 7.5 (6.5-8.0) g/dL Albumin 4.2 (3.5-5.0) g/dL Lipase 36 (8-78) U/L Urine Color Yellow Urine Appearance Clear Urine pH 5.0 (5.0-9.0) Ur Specific [place] >= 1.030 H (1.005-1.025) Urine Protein Negative (Neg-Trace) mg/dL Urine Glucose (UA) >=1000 H (Negative) mg/dL Urine Ketones Negative (Negative) mg/dL Urine Blood Negative (Negative) Urine Nitrite Negative (Negative) Ur Leukocyte Esterase Negative (Negative) Urine RBC 0-2 (0-2) /HPF Urine WBC 0-5 (0-5) /HPF Ur Squamous Epith Cells 0-2 (0-2) /HPF Urine Bacteria None Seen (None Seen) Hyaline Casts 0-2 (0-2) /LPF Influenza Type A (PCR) NEGATIVE (Negative) Influenza Type B (PCR) NEGATIVE (Negative) RSV RNA Qual (PCR) NEGATIVE (Negative) SARS-CoV-2 RNA (RT-PCR) NEGATIVE (Negative) Independent Interpretation I performed an independent interpretation of an: CT Scan ( Abdomen And pelvis:1. Left inguinal hernia containing fat. 2. Minimal umbilical hernia containing fat. 3. 1 mm nonobstructing calculus lower pole left kidney. ) Radiology Impression Discussion of test interpretation with radiology: I have reviewed the radiologist's reading. Discharge Plan Discharge Clinical Impression: Uncontrolled diabetes mellitus with hyperglycemia Patient Disposition: Home, Self-Care Instructions: Polyuria (ED) Additional Instructions: avoid eating high carbohydrate diet. Increase your metformin from 500 mg twice a day to 1000 mg twice a day. Follow-up with your PCP for better management of diabetes. Prescriptions: No Action sennosides [senna] 8.6 mg tablet 8.6 mg PO BEDTIME Qty: 14 0RF docusate sodium [Colace] 100 mg capsule 100 mg PO BID Qty: 20 0RF polyethylene glycol 3350 [Miralax] 17 gram/dose powder 17 g PO BID Qty: 238 0RF ondansetron 4 mg tablet,disintegrating 4 mg PO Q6H PRN (Reason: nausea and vomiting) Qty: 14 0RF ketorolac 10 mg tablet 10 mg PO TID PRN (Reason: pain) 5 Days Qty: 15 0RF naproxen 500 mg tablet 500 mg PO BID PRN (Reason: pain) 7 Days Qty: 14 0RF dexamethasone 4 mg tablet 4 mg PO BID Qty: 8 0RF hydroxyzine HCl 25 mg tablet 25 mg PO TID PRN (Reason: itching) Qty: 20 0RF Referrals: Patito Wong, FUR TAILOR [Primary Care Provider] -
[2023-04-12 04:01] LABS: Alanine Aminotransferase 21 U/L (0-40); Albumin Level 4.2 g/dL (3.5-5.0); Alkaline Phosphatase 94 U/L (39-117); Anion Gap 14 (12-20); Aspartate Amino Transferase 13 U/L (5-37); Bilirubin Direct 0.1 mg/dL (0.0-0.5); Bilirubin Total 0.4 mg/dL (0.0-1.0); Blood Urea Nitrogen 14 mg/dL (9-16); Calcium 9.8 mg/dL (8.4-10.2); Carbon Dioxide 27 mmol/L (22-29); Chloride 104 mmol/L (96-108); Creatinine Clr Calc Pharmacy 140.1; Estimated Glomerular Filt Rate > 60; Glucose Random 229 mg/dL (60-115); Lipase 36 U/L (8-78); Potassium 3.8 mmol/L (3.3-5.1); Sodium 141 mmol/L (135-145); Total Protein 7.5 g/dL (6.5-8.0)
[2023-04-12 07:16] VITALS: BP 109/53; PULSE 63; RESP 16; TEMP 36.6; O2SAT 97
== END 2023-04-12 07:28 | disposition home or self-care (01) ==
PROVIDERS: Emergency Provider Emergency Medicine; PCP Registered Nurse
DX: E11.65 Type 2 diabetes mellitus with hyperglycemia (principal); R35.0 Frequency of micturition; K40.90 Unilateral inguinal hernia, without obstruction or gangrene, not specified as recurrent; E11.9 Type 2 diabetes mellitus without complications; I50.9 Heart failure, unspecified; Z79.899 Other long term (current) drug therapy; Z11.52 Encounter for screening for COVID-19; Z20.828 Contact with and (suspected) exposure to other viral communicable diseases
CPT/HCPCS: 0241U; 36415; 74176; 80048; 80076; 81001; 83690; 85025; 96360; 99284

== ENCOUNTER 2023-04-15 12:37 | Outpatient (AMB) | payer MEDICAID, SELFPAY ==
--- NOTE | 2023-04-15 12:42 | A.OFFVIS_ITS ---
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: No Accompanied by: Self / Same As Patient Allergies amoxicillin Allergy (Verified 04/15/23 12:44) Hives Medication List - Last Reconciled 04/15/23 by Jesus Vazquez MD atorvastatin 40 mg PO BEDTIME buprenorphine-naloxone 8-2 mg (Suboxone) 10 mg sublingual BID dexamethasone 4 mg PO BID empagliflozin (Jardiance) 25 mg PO QAM epinephrine IM DIRECTED famotidine 20 mg PO gabapentin 300 mg PO TID hydroxyzine HCl 25 mg PO TID PRN ketorolac 10 mg PO TID PRN 5 days metformin ER 500 mg PO QAM naproxen 500 mg PO BID PRN 7 days spironolactone 25 mg PO QAM HPI HPI Comments History of Present Illness Details Ambrose is here for consultation regarding congestive heart failure. It seems that he was seen by [facility] in the past. Per notes, there is a diagnosis of chronic heart failure with preserved ejection fraction. There is also history of tobacco dependence, substance abuse among others. He has nonspecific chest pains at different times. Some shortness of breath off and on. Nothing consistent. [facility] Medical History (Updated 04/15/23 @ 13:08 by Jesus Vazquez MD) Cannabis use disorder Uncomplicated opioid dependence Moderate episode of recurrent major depressive disorder Substance abuse Gastritis Diabetes CHF (congestive heart failure) Inguinal hernia Surgical History (Updated 04/15/23 @ 12:46 by Melissa Bustillo) No pertinent past surgical history Family History (Updated 04/15/23 @ 12:47 by Melissa Bustillo) Mother No problems noted. Father No problems noted. Social History Substance Use Type: Marijuana and Unknown Review of Systems Const All systems reviewed & are unremarkable except as noted in HPI and below Reports as per HPI and Reports no additional complaints Eyes Reports as per HPI and Denies no additional complaints ENT Denies no additional complaints and Reports as per HPI Card Reports as per HPI, Reports no additional complaints, Denies acrocyanosis, Denies chest pain, Denies leg edema, Denies lightheadedness, Denies palpitations and Denies dyspnea Resp Reports as per HPI, Denies no additional complaints and Denies dyspnea GI Reports as per HPI and Denies no additional complaints Reports no additional complaints and Reports as per HPI Musc Reports no additional complaints and Reports as per HPI Skin/Breast Reports system reviewed and no additional complaints, except as documented Neuro Reports no additional complaints and Reports as per HPI Psych Reports no additional complaints and Reports as per HPI Endo Reports no additional complaints, Reports as per HPI and Denies palpitations Dante/Lymph Reports no additional complaints and Reports as per HPI Aller/Immun Reports no additional complaints and Reports as per HPI Physical Exam Vital Signs: Last Vital Signs Pulse 65 04/15/23 12:43 BP 110/72 04/15/23 12:43 BMI result Body Mass Index 38.3 Const General: comfortable and no acute distress Orientation/consciousness: patient oriented x3 HEENT Other: Unremarkable Head: Yes normal to inspection Neck Neck: Yes normal visual inspection Chest Chest palpation & inspection: normal inspection of the chest Resp Auscultation: clear to auscultation bilaterally Cardio Palpation: normal PMI Heart sounds: S1 normal heart sound present, S2 normal heart sound present, no gallops, no murmurs and no rubs GI Palpation (GI): Soft to palpation Back/Spine/Pelvis Other: unremarkable Skin General skin exam: no rashes or lesions noted Neuro General: patient oriented x3 Extrem General: Yes normal to inspection Psych Mental Status: mental status grossly normal Assessment & Plan Assessment & Plan (1) Chronic heart failure with preserved ejection fraction (HFpEF): Code(s): I50.32 - Chronic diastolic (congestive) heart failure (2) Substance abuse: Code(s): F19.10 - Other psychoactive substance abuse, uncomplicated Plan Cardiac records reviewed. EKG shows sinus rhythm at 70/Min; T inversion inferior leads; leftward axis but otherwise unremarkable. This is similar to another EKG from June of this year. No significant changes going back almost 5 years. A prior echocardiogram from [facility] with LVEF of 50% with normal LV size/upper limit of normal thickness. No obvious wall motion abnormalities. Stress test from [address] [facility] showed very small mild reversible defect in the mid to distal anterior wall. However, on catheterization in 2020, normal coronary arteries with a tortuous mid LAD segment/mild myocardial bridge. More recently, cardiac BNP is well within normal limits and hence doubt any clinical heart failure. Not clear if he is actually taking Lasix or any other diuretic at home as it is not listed, but he believes he is on something. We will check with pharmacy. Other meds can be left unchanged for now. We will repeat echocardiogram to reassess cardiac function. Follow-up in a few weeks time. Orders: Orders CA echo transthoracic complete Today I50.32 - Chronic diastolic (congestive) heart failure Coding Level of Care Code New Pt Level 4 (86447) Diagnoses Chronic heart failure with preserved ejection fraction (HFpEF) I50.32 Substance abuse F19.10
[2023-04-15 12:43] VITALS: BP 110/72; PULSE 65; BMI 38.3
== END 2023-04-15 13:07 | disposition home or self-care (01) ==
PROVIDERS: PCP Registered Nurse; Referring Provider Registered Nurse; Visit Provider Internal Medicine
DX: I50.32 Chronic diastolic (congestive) heart failure (principal); F19.10 Other psychoactive substance abuse, uncomplicated
CPT/HCPCS: 99204

== ENCOUNTER → 2023-04-15 12:37 | Outpatient (BNVA) | payer MEDICAID, SELFPAY | PROVIDERS: PCP Registered Nurse; Visit Provider Internal Medicine | DX: I50.32 Chronic diastolic (congestive) heart failure (principal); F19.10 Other psychoactive substance abuse, uncomplicated | CPT/HCPCS: 99202 ==

== ENCOUNTER 2023-04-21 12:30 | Outpatient (AMB) | payer MEDICAID, SELFPAY ==
[2023-04-21 12:48] VITALS: BP 121/65; PULSE 71; BMI 38.8
--- NOTE | 2023-04-21 12:48 | A.OFFVIS_ITS ---
Intake Vital Signs 04/21/23 12:48 Height 5 ft 7 in Weight 248 lb BMI 38.8 BP 121/65 Blood Pressure Location Rt brachial Position Sitting Pulse 71 Intake Visit Reasons: LIH Intake Note: Patient referred by pcp Patito [place] for lt inguinal hernia. First noticed in 2015. Patient c/o: Painful at times. Denies nausea. 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 It is occasionally heavy lifting. He has no other GI issues or complaints. He is tolerating a diet. He is having regular bowel habits. Patient had a CT scan recently which demonstrated a left inguinal hernia and a very small umbilical hernia. Chart was reviewed and patient evaluate [facility] Medical History (Updated 04/21/23 @ 12:52 by NAEL Sharma) Left elbow fracture Cannabis use disorder Uncomplicated opioid dependence Moderate episode of recurrent major depressive disorder Substance abuse Gastritis Diabetes CHF (congestive heart failure) Inguinal hernia Surgical History (Updated 04/21/23 @ 13:28 by Maldonado Bryant MD) No pertinent past surgical history Family History (Updated 04/15/23 @ 12:47 by Melissa Bustillo) Mother No problems noted. Father No problems noted. Social History (Updated 04/21/23 @ 12:53 by NAEL Sharma) Alcohol intake: current Alcohol intake frequency: does not drink Alcohol type: beer and hard liquor Cigarettes Per Day: 7 Substance Use Type: Marijuana and Unknown Physical Exam Vital Signs: Last Vital Signs Pulse 71 04/21/23 12:48 BP 121/65 04/21/23 12:48 BMI result Body Mass Index 38.8 Const Other: Moderately corpulent male Chest Other: Chest sounds bilaterally, HS 1 in 2 GI Other: Very corpulent abdomen. Very small umbilical hernia asymptomatic. Right groin negative. Genitalia within normal limits. Moderately sized left inguinal hernia. Assessment & Plan Assessment & Plan (1) Left inguinal hernia: Code(s): K40.90 - Unilateral inguinal hernia, without obstruction or gangrene, not specified as recurrent Plan Risks, benefits, alternatives open inguinal hernia repair left side with mesh reviewed with the patient and included but not limited to bleeding, infection, recurrence, numbness, pain, scarring the patient wished to proceed. All questio ns answered. Arrangements will be made for this. Coding Level of Care Code New Pt Level 5 (41019) Diagnoses Left inguinal hernia K40.90
== END 2023-04-21 13:16 | disposition home or self-care (01) ==
PROVIDERS: PCP Registered Nurse; Referring Provider Registered Nurse; Visit Provider Surgery
DX: K40.90 Unilateral inguinal hernia, without obstruction or gangrene, not specified as recurrent (principal)
CPT/HCPCS: 99204

== ENCOUNTER → 2023-04-21 12:30 | Outpatient (BNVA) | payer MEDICAID, SELFPAY | PROVIDERS: PCP Registered Nurse; Referring Provider Registered Nurse; Visit Provider Surgery | DX: K40.90 Unilateral inguinal hernia, without obstruction or gangrene, not specified as recurrent (principal) | CPT/HCPCS: 99202 ==

== ENCOUNTER → 2023-04-23 13:54 | Outpatient (REF) | payer MEDICAID, SELFPAY ==
--- NOTE | 2023-04-23 13:58 | CA_ITS ---
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 The calculated ejection fraction is 67% by biplane method. - There is mildly increased left ventricular wall thickness. - No obvious valvular pathology seen on this study. Findings Procedure Information Contrast agent, definity, is being given per protocol without apparent complications. The quality of the study was technically difficult. The study quality is limited by patients body habitus. Left Ventricle Normal left ventricular cavity size. There is mildly increased left ventricular wall thickness. The left ventricular systolic function is normal. The calculated ejection fraction is 67% by biplane method. There is no evidence of regional wall motion abnormalities. Diastolic function is normal for age. Right Ventricle Normal right ventricular cavity size and systolic function. Atria Both atria are normal in size. Aortic Valve There is a doming trileaflet aortic valve. There is no aortic valve stenosis. There is no aortic valve regurgitation. Mitral Valve The mitral valve appears normal. There is no mitral valve regurgitation. There is no mitral valve stenosis. Pulmonic Valve The pulmonic valve is likely normal. Tricuspid Valve There is no tricuspid valve regurgitation. Tricuspid regurgitation envelope is inadequate for calculation of right ventricular systolic pressure. Great Vessels The asc aorta is normal in size. Venous The inferior vena cava was not well visualized. Pericardium/Pleural There is no evidence of pericardial effusion. Prior Study Comparison No significant change compared to prior study dated: 01/28/2017. Recommendations, Care & Conclusions No obvious valvular pathology seen on this study. Measurements 2D Linear Measurements IVSd: 1.15 0.6-0.9/0.6-1.0 cm LVIDd: 4.86 3.9-5.3/4.2-5.9 cm LVIDd Index: 2.19 2.4-3.2/2.2-3.1 cm/m2 LVIDs: 2.87 2.0-3.6 cm LVPWd: 1.08 0.7-1.1 cm LA Diam: 3.70 2.7-3.8/3.0-4.0 cm LAIDs Index: 1.67 1.5-2.3 cm/m2 LV Mass: 251.27 67-162/88-224 g LV Mass Index: 113.19 43-95/49-115 g/m2 LVOT Diam: 2.20 3.0+(-)1.3 cm 2D Systolic Function EF 4C: 72.00 >55% EF 2C: 61.30 >55% EF BiP: 67.30 >55% Mitral Valve MV Pk E: 0.89 MV PK A: 0.52 MV Decel Time: 194.00 E/A: 1.70 E'Lateral: 14.90 E'Medial: 8.49 E/E' Med: 10.40 E/E' Lat: 6.00 PHT: 57.00 MVA PHT: 3.86 Decel Stephens: 4.56 Aortic Valve AoV Pk Dann: 1.43 AoV Pk Grad: 8.00 RAUL: 3.56 LVOT LVOT Pk Dann: 1.34 LVOT Mn Dann: 0.93 LVOT VTI: 0.26 LVOT Pk Grad: 7.00 LVOT Mn Grad: 4.00 LVOT Diam: 2.20 LVOT Area: 3.80 Diastolic Function MV Pk E: 0.89 MV Pk A: 0.52 E/A: 1.70 E'Medial: 8.49 E/E' Med: 10.40 E' Laterial: 14.90 E/E' Lat: 6.00 Right Ventricle TAPSE (mm): 25.30 TVS' Dann: 12.80 Great Vessels Aorta Sinus of Valsalva: 3.10 2.0-3.5 cm Ao Asc: 3.10 2.1-3.4 cm Pulmonary Veins Pulm Vein S/D 0.70 Pulmonary Valve PV Pk Dann: 0.92 Peak PV Grad: 3.00 Updated in Other Vendor System with Status of Final Jesus Vazquez MD electronically signed on 04/25/2023 1:07:11 PM with status of Final
== END ==
LOC: HO.CARD 13:54
PROVIDERS: PCP Registered Nurse; Visit Provider Internal Medicine
DX: I50.32 Chronic diastolic (congestive) heart failure (principal)
CPT/HCPCS: 93306; Q9957

== ENCOUNTER → 2023-04-23 13:58 | Outpatient (BNV) | payer MEDICAID, SELFPAY | PROVIDERS: PCP Registered Nurse; Visit Provider Internal Medicine | DX: I50.32 Chronic diastolic (congestive) heart failure (principal) | CPT/HCPCS: 93306 ==

== ENCOUNTER 2023-05-14 14:00 | Outpatient (RCR) | payer MEDICAID, SELFPAY ==
--- NOTE | 2023-04-16 15:07 | MHC.PT.EP ---
[facility] [place] Office [place] Office [place] Office [address] Leatha James [address] [phone] F: [phone] F: [phone] F: [phone] F: [phone] Physical Therapy Plan of Care Date of Evaluation: 04/16/23 Date of Surgery: N/A Diagnosis: herniated lumbar disc without myelopathy (RL) Assessment: pt is a 37 y/o male presenting to physical therapy w/ referring diagnosis of herniated lumbar disc without myelopathy. Given his new urinary incontinence and bilateral nature of pain/numbness/tingling I am concerned he may have spinal cord involvement. He does see his PCP on 04/24 to follow-up w/ new symptoms. He may be candidate Impairments include pain, decreased range of motion, decreased strength, impaired functional mobility, impaired postural awareness, and altered ambulation mechanics. pt is a fair candidate for skilled PT due to age, potential remediation of impairments, typical disease/condition progression and prognosis, comorbidities, and motivation. pt would benefit from skilled PT intervention to provide a tailored strengthening and stretching exercise program, functional training, gait training, postural re-training, neuromuscular re-education, modalities as needed for pain, equipment safety demonstration. Frequency and Duration: The patient will be seen 2x/wk for 4 wks Short Term Goals: pt will be I w/ HEP to promote self-management of condition. pt will demo proper sitting posture w/ lumbar roll to promote neutral spine w/ seated ADLs. Senior Living Goals: pt will report a statistically significant improvement in self-reported outcome measure, Shirlene, to promote return to PLOF. pt will report <3/10 low back pain w/ ambulation >2600' to promote ease in community level ambulation. Treatment Plan: Modalities to reduce pain, spasms and effusion. Manual therapy to restore motion and function. Therapeutic exercise to improve strength and flexibility. Neuromuscular re-education for posture and balance. Therapeutic activities to return to functional activities of daily living. Electronically signed by: Augustina Jolly PT, DPT Please sign and return to therapist. Thank you for your referral.
== END 2023-06-08 15:50 | disposition home or self-care (01) ==
LOC: HO.PT 14:00
PROVIDERS: PCP Registered Nurse; Visit Provider Internal Medicine
DX: M51.26 Other intervertebral disc displacement, lumbar region (principal)
CPT/HCPCS: 97110; 97112; 97162; 97530